=== PATIENT | male | born 1940 | race Caucasian/White ===

== ENCOUNTER 2017-01-14 11:20 | Inpatient (IN) | payer MEDICARE ==
[2017-01-14] MEDS ORDERED: MORPHINE SULFATE 4 MG/ML SYRINGE IV STA (12:09)
[2017-01-14] MEDS ORDERED: SODIUM CHLORIDE 0.9% 1,000 ML IV STA ×2 (12:09)
--- NOTE | 2017-01-14 12:11 | ED ---
General Adult HPI - General Chief complaint: Abdominal Pain Stated complaint: Abd.pain Time Seen by Provider: 01/14/17 11:59 Source: patient, RN notes reviewed, old records reviewed Mode of arrival: wheelchair Limitations: no limitations - History of Present Illness Initial comments: This is a 76-year-old male here for bowel pain. Patient has history of intestinal rupture. Patient concern for intestinal test rupture. Patient has diabetes hypertension. Patient has no chest pain or shortness of breath. No nausea vomiting or diarrhea. No recent fevers or travel history no family members with same similar symptoms. - Related Data Home Medications Medication Instructions Recorded Confirmed Enalapril [Vasotec] 10 mg PO BID 04/11/15 01/14/17 Levothyroxine Sodium [Synthroid] 100 mcg PO DAILY 04/11/15 01/14/17 Potassium Chloride [Klor-Con 20] 20 meq PO BID 04/11/15 01/14/17 Insulin NPH Human Isophane 40 units SQ HS 11/07/15 01/14/17 [NovoLIN N] Atorvastatin [Lipitor] 80 mg PO HS 01/14/17 01/14/17 Docusate Sodium [Dok] 100 mg PO DAILY PRN 01/14/17 01/14/17 Furosemide [Lasix] 40 mg PO BID 01/14/17 01/14/17 Magnesium Oxide [Mag-Ox] 400 mg PO HS 01/14/17 01/14/17 Metoprolol Tartrate [Lopressor] 25 mg PO BID 01/14/17 01/14/17 Multivitamin [Men's Multi-Vitamin] 1 tab PO DAILY@1200 01/14/17 01/14/17 Nitroglycerin Sl Tabs [Nitrostat] 0.4 mg SUBLINGUAL Q5M PRN 01/14/17 01/14/17 Warfarin Sodium [Coumadin] 3 mg PO HS 01/14/17 01/14/17 Warfarin Sodium [Coumadin] 5 mg PO HS 01/14/17 01/14/17 amLODIPine BESYLATE [Norvasc] 10 mg PO DAILY 01/14/17 01/14/17 metFORMIN HCL 1,000 mg PO BID 01/14/17 01/14/17 Allergies Allergy/AdvReac Type Severity Reaction Status Date / Time No Known Allergies Allergy Verified 01/14/17 13:00 Review of Systems ROS Statement: Those systems with pertinent positive or pertinent negative responses have been documented in the HPI. ROS Other: All systems not noted in ROS Statement are negative. Past Medical History Past Medical History: Diabetes Mellitus, Hypertension, Osteoarthritis (OA), Thyroid Disorder Additional Past Medical History / Comment(s): SOB w/activity, balance problem, unsure what problems w/heart History of Any Multi-Drug Resistant Organisms: None Reported Past Surgical History: Appendectomy, Back Surgery, Coronary Bypass/CABG Additional Past Surgical History / Comment(s): valve replacement-not sure which one, some kind of lung surgery in 2003 Past Anesthesia/Blood Transfusion Reactions: No Reported Reaction Past Psychological History: No Psychological Hx Reported Smoking Status: Former smoker Past Alcohol Use History: Rare Past Drug Use History: None Reported - Past Family History Father Family Medical History: Cancer General Exam Limitations: no limitations General appearance: alert, in no apparent distress Head exam: Present: atraumatic, normocephalic, normal inspection Eye exam: Present: normal appearance, PERRL, EOMI. Absent: scleral icterus, conjunctival injection, periorbital swelling ENT exam: Present: normal exam, mucous membranes moist Neck exam: Present: normal inspection. Absent: tenderness, meningismus, lymphadenopathy Respiratory exam: Present: normal lung sounds bilaterally. Absent: respiratory distress, wheezes, rales, rhonchi, stridor Cardiovascular Exam: Present: regular rate, normal rhythm, normal heart sounds. Absent: systolic murmur, diastolic murmur, rubs, gallop, clicks GI/Abdominal exam: Present: soft, normal bowel sounds, hernia (Right inguinal swelling and pain), other. Absent: distended, tenderness, guarding, rebound, rigid Extremities exam: Present: normal inspection, full ROM, normal capillary refill. Absent: tenderness, pedal edema, joint swelling, calf tenderness Back exam: Present: normal inspection Neurological exam: Present: alert, oriented X3, CN II-XII intact Psychiatric exam: Present: normal affect, normal mood Skin exam: Present: warm, dry, intact, normal color. Absent: rash Course Vital Signs 01/14/17 11:27 Temperature 97.1 F L Pulse Rate 60 Respiratory 20 Rate Blood Pressure 141/69 O2 Sat by Pulse 97 Oximetry - Reevaluation(s) Reevaluation #1: 01/14/17 15:02 At this point patient's pain is improved Medical Decision Making - Medical Decision Making 76 male to the ER with recurrent hernia. Patient presented with about pain right inguinal hernia and mild dehydration. Patient be refractory resuscitation symptom control and surgical evaluation. - Lab Data Result diagrams: 01/14/17 12:35 01/14/17 12:35 Lab Results 01/14/17 01/14/17 01/14/17 Range/Units 12:35 12:35 12:35 WBC 8.7 (3.8-10.6) k/uL RBC 3.95 L (4.30-5.90) m/uL Hgb 11.8 L (13.0-17.5) gm/dL Hct 35.1 L (39.0-53.0) % MCV 88.9 (80.0-100.0) fL MCH 29.8 (25.0-35.0) pg MCHC 33.6 (31.0-37.0) g/dL RDW 15.1 (11.5-15.5) % Plt Count 241 (150-450) k/uL Neutrophils % 70 % Lymphocytes % 21 % Monocytes % 6 % Eosinophils % 1 % Basophils % 1 % Neutrophils # 6.0 (1.3-7.7) k/uL Lymphocytes # 1.8 (1.0-4.8) k/uL Monocytes # 0.5 (0-1.0) k/uL Eosinophils # 0.1 (0-0.7) k/uL Basophils # 0.1 (0-0.2) k/uL Sodium 144 (137-145) mmol/L Potassium 5.0 (3.5-5.1) mmol/L Chloride 104 (98-107) mmol/L Carbon Dioxide 25 (22-30) mmol/L Anion Gap 15 mmol/L BUN 26 H (9-20) mg/dL Creatinine 1.06 (0.66-1.25) mg/dL Est GFR (MDRD) Af Amer >60 (>60 ml/min/1.73 sqM) Est GFR (MDRD) Non-Af >60 (>60 ml/min/1.73 sqM) Glucose 125 H (74-99) mg/dL Plasma Lactic Acid Manjeet (0.7-2.0) mmol/L Calcium 9.4 (8.4-10.2) mg/dL Total Bilirubin 1.0 (0.2-1.3) mg/dL AST 40 (17-59) U/L ALT 30 (21-72) U/L Alkaline Phosphatase 52 (38-126) U/L Total Creatine Kinase 304 H (55-170) U/L CK-MB (CK-2) 6.1 H* (0.0-2.4) ng/mL CK-MB (CK-2) Rel Index 2.0 Troponin I <0.012 (0.000-0.034) ng/mL Total Protein 7.7 (6.3-8.2) g/dL Albumin 4.4 (3.5-5.0) g/dL Amylase 37 (30-110) U/L Lipase 62 (23-300) U/L Urine Color Urine Appearance (Clear) Urine pH (5.0-8.0) Ur Specific [place] (1.001-1.035) Urine Protein (Negative) Urine Glucose (UA) (Negative) Urine Ketones (Negative) Urine Blood (Negative) Urine Nitrate (Negative) Urine Bilirubin (Negative) Urine Urobilinogen (<2.0) mg/dL Ur Leukocyte Esterase (Negative) 01/14/17 01/14/17 Range/Units 12:35 12:45 WBC (3.8-10.6) k/uL RBC (4.30-5.90) m/uL Hgb (13.0-17.5) gm/dL Hct (39.0-53.0) % MCV (80.0-100.0) fL MCH (25.0-35.0) pg MCHC (31.0-37.0) g/dL RDW (11.5-15.5) % Plt Count (150-450) k/uL Neutrophils % % Lymphocytes % % Monocytes % % Eosinophils % % Basophils % % Neutrophils # (1.3-7.7) k/uL Lymphocytes # (1.0-4.8) k/uL Monocytes # (0-1.0) k/uL Eosinophils # (0-0.7) k/uL Basophils # (0-0.2) k/uL Sodium (137-145) mmol/L Potassium (3.5-5.1) mmol/L Chloride (98-107) mmol/L Carbon Dioxide (22-30) mmol/L Anion Gap mmol/L BUN (9-20) mg/dL Creatinine (0.66-1.25) mg/dL Est GFR (MDRD) Af Amer (>60 ml/min/1.73 sqM) Est GFR (MDRD) Non-Af (>60 ml/min/1.73 sqM) Glucose (74-99) mg/dL Plasma Lactic Acid Manjeet 2.1 H (0.7-2.0) mmol/L Calcium (8.4-10.2) mg/dL Total Bilirubin (0.2-1.3) mg/dL AST (17-59) U/L ALT (21-72) U/L Alkaline Phosphatase (38-126) U/L Total Creatine Kinase (55-170) U/L CK-MB (CK-2) (0.0-2.4) ng/mL CK-MB (CK-2) Rel Index Troponin I (0.000-0.034) ng/mL Total Protein (6.3-8.2) g/dL Albumin (3.5-5.0) g/dL Amylase (30-110) U/L Lipase (23-300) U/L Urine Color Light Yellow Urine Appearance Clear (Clear) Urine pH 5.0 (5.0-8.0) Ur Specific [place] 1.006 (1.001-1.035) Urine Protein Negative (Negative) Urine Glucose (UA) Negative (Negative) Urine Ketones Negative (Negative) Urine Blood Negative (Negative) Urine Nitrate Negative (Negative) Urine Bilirubin Negative (Negative) Urine Urobilinogen <2.0 (<2.0) mg/dL Ur Leukocyte Esterase Negative (Negative) - Radiology Data Radiology results: report reviewed (CT pelvis shows right hernia as well as left inguinal hernia larger on the right), image reviewed Disposition Clinical Impression: Abdominal pain, Right inguinal hernia Disposition: ADMITTED IP TO THIS [facility] Condition: Good Referrals: Elian Torres MD [Primary Care Provider] - 1-2 days
[2017-01-14] MEDS ORDERED: RX INFO: IV CONTRAST WAS GIVEN 1 EACH MISC MISCELLANE PRN (12:43)
[2017-01-14 12:52] LABS: Basophils # (A) 0.1 k/uL (0-0.2); Basophils % (A) 1 %; CH 29.5; CHCM 33.4; Eosinophils # (A) 0.1 k/uL (0-0.7); Eosinophils % (A) 1 %; HCT 35.1 % (39.0-53.0); HDW 2.78; HGB 11.8 gm/dL (13.0-17.5); Luc # (Auto) 0.18; Luc % (Auto) 2; Lymphocytes # (A) 1.8 k/uL (1.0-4.8); Lymphocytes % (A) 21 %; MCH 29.8 pg (25.0-35.0); MCHC 33.6 g/dL (31.0-37.0); MCV 88.9 fL (80.0-100.0); Mean Platelet Volume 8.5; Monocytes # (A) 0.5 k/uL (0-1.0); Monocytes % (A) 6 %; Neutrophils % (A) 70 %; RBC 3.95 m/uL (4.30-5.90); RDW 15.1 % (11.5-15.5); WBC 8.7 k/uL (3.8-10.6); WBC (Perox) 8.69
[2017-01-14 13:11] LABS: Amylase 37 U/L (30-110); Anion Gap 15 mmol/L; Calcium 9.4 mg/dL (8.4-10.2); Carbon Dioxide 25 mmol/L (22-30); Chloride 104 mmol/L (98-107); Creatine Kinase 304 U/L (55-170); Glucose 125 mg/dL (74-99); Non-African American GFR(MDRD) >60 (>60 ml/min/1.73 sqM); Sodium 144 mmol/L (137-145); Total Protein 7.7 g/dL (6.3-8.2)
[2017-01-14 13:17] LABS: AST 40 U/L (17-59); Blood Urea Nitrogen 26 mg/dL (9-20)
[2017-01-14 13:18] LABS: ALT 30 U/L (21-72); Alkaline Phosphatase 52 U/L (38-126)
[2017-01-14 13:23] LABS: Troponin I <0.012 ng/mL (0.000-0.034)
[2017-01-14 13:24] LABS: Creatine Kinase MB 6.1 ng/mL (0.0-2.4)
[2017-01-14 13:49] LABS: Appearance,Urine Clear (Clear); Bilirubin,Urine Negative (Negative); Glucose,Urine (UA) Negative (Negative); Ketones,Urine Negative (Negative); Leukocyte Esterase,Urine Negative (Negative); Nitrite,Urine Negative (Negative); Protein,Urine Negative (Negative); Specific Gravity,Urine 1.006 (1.001-1.035); UA Billing (MACRO vs. MICRO) CHEM; Urobilinogen,Urine <2.0 mg/dL (<2.0)
--- NOTE | 2017-01-14 14:36 | CT ---
EXAMINATION TYPE: CT abdomen pelvis w con DATE OF EXAM: 01/14/2017 2:21 PM COMPARISON: NONE HISTORY: 76-year-old male with right groin pain x3 weeks. TECHNIQUE: Contiguous axial scanning of the abdomen and pelvis following administration of 100 ml Omn ipaque 300 IV contrast. Delayed images through the kidneys and coronal/sagittal reconstructions perf ormed. CT DLP: 1813 mGycm Automated exposure control for dose reduction was used. FINDINGS: Heart is upper limits of normal in size without pericardial effusion. A right ventricular pacer lead is seen. Mitral annular calcifications are present. There is chronic appearing pleural parenchymal th ickening along the peripheral left base and underlying interstitial densities likely scarring. Small hiatal hernia. Liver is mildly enlarged measuring 18.3 cm craniocaudal. There may be some underlying fatty infiltrat ion. The phase of contrast limits the evaluation. No biliary ductal dilatation. Gallbladder, adrenal glands, kidneys, spleen, and pancreas appear within normal limits. Moderate atherosclerotic calcifications throughout the abdominal aorta and iliac arteries without ane urysm. No dilated small bowel, free fluid, or free air. No mesenteric or retroperitoneal lymphadenopathy. There is some surgical material along the anterior abdominal wall of the right lower quadrant. Redundant sigmoid colon noted. No pericolonic inflammatory change. Bladder is urine distended. Prostate gland is enlarged measuring 5.3 cm wide. Rectum appears normal. No abnormal fluid collection in the pelvis or pelvic lymphadenopathy seen. There is a large right-sided indirect inguinal hernia containing mesenteric fat and vessels. Small he rnia on the left. Bones: Post surgical changes of right hip total arthroplasty. Laminectomy changes and posterior fusio n changes in the lumbar spine with multilevel degenerative changes. No osseous destructive process se en. IMPRESSION: 1. LARGE INDIRECT RIGHT-SIDED INGUINAL HERNIA CONTAINING MESENTERIC FAT AND VESSELS. SMALL INGUINAL H ERNIA ON THE LEFT. 2. SUSPECT CHRONIC PLEURAL-PARENCHYMAL SCARRING AT THE LEFT BASE. 3. HEPATOMEGALY AT 18.3 CM. THERE MAY BE UNDERLYING FATTY INFILTRATION. CORRELATE WITH LFT's, LIPID P ROFILE, AND PATIENT RISK FACTORS. 4. SMALL HIATAL HERNIA AND PROSTATOMEGALY (5.3 CM WIDE).
[2017-01-14] MEDS ORDERED: SODIUM CHLORIDE 0.9% 1,000 ML IV ONE (14:59)
[2017-01-14] MEDS ORDERED: MORPHINE SULFATE 4 MG/ML SYRINGE IVP PRN (15:00)
[2017-01-14] MEDS ORDERED: ONDANSETRON 4 MG/2 ML VIAL IVP STA (15:00)
[2017-01-14] MEDS ORDERED: ONDANSETRON 4 MG/2 ML VIAL IVP PRN (15:00)
[2017-01-14] MEDS ORDERED: PANTOPRAZOLE 40 MG/10 ML VIAL IVP STA (15:00)
--- NOTE | 2017-01-14 17:34 | P.GSHP ---
History of Present Illness H&P Date: 01/14/17 Chief Complaint: Right groin pain Patient is a 76-year-old male, patient of Dr. Torres in the outpatient setting, with complex medical history significant for atrial flutter on anticoagulation in the form of Coumadin with last dose taken last night. Patient presented to the hospital with complaints of right groin pain and swelling increasing in severity over the last 3 weeks. No history of chills, nausea, vomiting, increased shortness of breath, chest pain, or abdominal pain. Patient states he has occasional diarrhea. No history of constipation. No history of melena or hematochezia. CT of abdomen and pelvis with evidence of large indirect right-sided inguinal hernia containing mesenteric fat and vessels and small inguinal hernia on the left. Patient afebrile. No evidence of leukocytosis. Past Medical History Past Medical History: Atrial Flutter, Asthma, Coronary Artery Disease (CAD), Diabetes Mellitus, Hyperlipidemia, Hypertension, Osteoarthritis (OA), Pneumonia , Sleep Apnea/CPAP/BIPAP, Thyroid Disorder Additional Past Medical History / Comment(s): "FREQUENT NOSE BLEEDS", PAST AFLUTTER, ASTHMA CHILD, NO CPAP MACHINE USED, PAST EAR INFECTIONS, WEARS DEPENDS-URINARY INCONT. BALANCE ISSUES AT TIMES USES A WALKER. History of Any Multi-Drug Resistant Organisms: None Reported Past Surgical History: Appendectomy, Back Surgery, Coronary Bypass/CABG, Heart Catheterization With Stent, Joint Replacement, Pacemaker, Tonsillectomy Additional Past Surgical History / Comment(s): AORTIC VALVE REPLACMENT PT STATED "ALSO HAD 2 VESSELS DONE", some kind of lung surgery in 2003, KELSEA, CARDIOVERSION. PNEUMOTHORAX HAD SOME TYPE OF SX AND A C/T.RT HIP REPLACMENT. Past Anesthesia/Blood Transfusion Reactions: No Reported Reaction Additional Past Anesthesia/Blood Transfusion Reaction / Comment(s): RECEIVED BLOOD IN PAST -NO REACTION TO IT. Date of Last Stent Placement:: UNK Type of Cardiac Device: Permanent Pacemaker Device Placement Date:: UNK Past Psychological History: No Psychological Hx Reported Additional Psychological History / Comment(s): PT LIVES WITH BROTHER AND HIS SISTER IN LAW. PT DRIVES, STATES OCC HAS BALANCE ISSUES AND HAS A WALKER IF NEEDED. HAS 3 STEPS UP INTO HOUSE. NO OUTSIDE SERVICES RECIEVED AT PRESENT TIME. STATED HAS 02 MACHINE AT HOME SINCE LUNG SX BUT DOES'NT USE IT. Smoking Status: Former smoker Past Alcohol Use History: Rare Additional Past Alcohol Use History / Comment(s): QUIT SMOKING 1979 Past Drug Use History: None Reported - Past Family History Mother Family Medical History: CVA/TIA Father Family Medical History: Cancer Medications and Allergies Home Medications Medication Instructions Recorded Confirmed Type Enalapril [Vasotec] 10 mg PO BID 04/11/15 01/14/17 History Levothyroxine Sodium [Synthroid] 100 mcg PO DAILY 04/11/15 01/14/17 History Potassium Chloride [Klor-Con 20] 20 meq PO BID 04/11/15 01/14/17 History Insulin NPH Human Isophane 40 units SQ HS 11/07/15 01/14/17 History [NovoLIN N] Atorvastatin [Lipitor] 80 mg PO HS 01/14/17 01/14/17 History Docusate Sodium [Dok] 100 mg PO DAILY PRN 01/14/17 01/14/17 History Furosemide [Lasix] 40 mg PO BID 01/14/17 01/14/17 History Magnesium Oxide [Mag-Ox] 400 mg PO HS 01/14/17 01/14/17 History Metoprolol Tartrate [Lopressor] 25 mg PO BID 01/14/17 01/14/17 History Multivitamin [Men's Multi-Vitamin] 1 tab PO DAILY@1200 01/14/17 01/14/17 History Nitroglycerin Sl Tabs [Nitrostat] 0.4 mg SUBLINGUAL Q5M PRN 01/14/17 01/14/17 History Warfarin Sodium [Coumadin] 3 mg PO HS 01/14/17 01/14/17 History Warfarin Sodium [Coumadin] 5 mg PO HS 01/14/17 01/14/17 History amLODIPine BESYLATE [Norvasc] 10 mg PO DAILY 01/14/17 01/14/17 History metFORMIN HCL 1,000 mg PO BID 01/14/17 01/14/17 History Allergies Allergy/AdvReac Type Severity Reaction Status Date / Time No Known Allergies Allergy Verified 01/14/17 13:00 Surgical - Exam Vital Signs Temp Pulse Resp BP Pulse Ox 97.1 F L 60 20 141/69 97 01/14/17 11:27 01/14/17 11:27 01/14/17 11:27 01/14/17 11:27 01/14/17 11:27 GENERAL: Pt awake and alert, well-appearing, well-nourished, and in no acute distress. HEAD: Atraumatic, normocephalic. EYES: Pupils equal and round. Sclera anicteric, conjunctiva are normal. ENT: Moist mucous membranes. LUNGS: Breath sounds diminished to auscultation bilaterally. No wheezes, rales , or rhonchi. HEART: Heart S1, S2, no S3 or S4. Regular rate and rhythm. No murmurs, rubs or gallops. ABDOMEN: Soft, obese, nontender, nondistended, normoactive bowel sounds. No guarding, no rebound. No masses or organomegaly appreciated. Right inguinal hernia swelling and pain. EXTREMITIES: Palpable peripheral pulses. 1+ edema to bilateral lower extremities. No calf tenderness. NEUROLOGICAL: Pt oriented x 3. No focal deficits. Strength and sensation grossly intact. PSYCH: Normal mood, normal affect. Results - Labs 01/14/17 12:35 01/14/17 12:35 - Imaging CT scan - abdomen: report reviewed CT scan - pelvis: report reviewed Assessment and Plan Plan: Impression: 1. Large indirect right-sided inguinal hernia containing mesenteric fat and vessels. 2. Small inguinal hernia on the left. 3. Small hiatal hernia. 4. Dehydration. Plan: Patient will undergo bilateral inguinal hernia repair when medically stable. Will ask pulmonary and cardiology service to evaluate patient for preop clearance. Will place patient on a clear liquid diet. Nothing by mouth after midnight. Continue IV hydration. Continue supportive treatment and pain management. Repeat CBC, BMP, lactic acid, PT/INR in a.m. Hold Coumadin. The above impression and plan have been discussed and directed by Dr. Guerra. Enma RUBI acting as scribe for Dr. Guerra.
[2017-01-14] MEDS ORDERED: DOCUSATE 100 MG CAP PO PRN (18:17)
[2017-01-14] MEDS ORDERED: NITROGLYCERIN SL TABS 0.4 MG TAB SUBLINGUAL PRN (18:17)
[2017-01-14 20:34] LABS: Hemoglobin A1C 10.1 % (4.2-6.1)
[2017-01-14] MEDS: FUROSEMIDE 40 MG TAB PO SCH (20:57)
[2017-01-14] MEDS: ATORVASTATIN 80 MG TAB PO SCH (20:57)
[2017-01-14] MEDS: METOPROLOL TARTRATE 25 MG TAB PO SCH (20:58)
[2017-01-14] MEDS: MAGNESIUM OXIDE 400 MG TAB PO SCH (20:58)
[2017-01-14] MEDS: POTASSIUM CHLORIDE ER 20 MEQ TAB.ER PO SCH (20:58)
[2017-01-14] MEDS: LISINOPRIL 20 MG TAB PO SCH (20:58)
[2017-01-14 21:32] LABS: Glucose,Whole Blood 121 mg/dL (75-99)
[2017-01-14] MEDS: INSULIN LISPRO (humaLOG) 300 UNIT/3 ML VIAL SQ SCH (23:31)
[2017-01-15] MEDS: LEVOTHYROXINE 100 MCG TAB PO SCH (06:14)
[2017-01-15 07:10] LABS: Glucose,Whole Blood 121 mg/dL (75-99)
[2017-01-15] MEDS: INSULIN LISPRO (humaLOG) 300 UNIT/3 ML VIAL SQ SCH ×4 (08:12→22:26)
[2017-01-15] MEDS: FUROSEMIDE 40 MG TAB PO SCH (08:16)
[2017-01-15] MEDS: METOPROLOL TARTRATE 25 MG TAB PO SCH ×2 (08:16→21:24)
[2017-01-15] MEDS: LISINOPRIL 20 MG TAB PO SCH (08:16)
[2017-01-15] MEDS: POTASSIUM CHLORIDE ER 20 MEQ TAB.ER PO SCH (08:16)
[2017-01-15] MEDS: PANTOPRAZOLE 40 MG/10 ML VIAL IVP SCH (08:22)
[2017-01-15 08:54] LABS: Basophils # (A) 0.1 k/uL (0-0.2); Basophils % (A) 1 %; CH 28.5; CHCM 31.4; Eosinophils # (A) 0.2 k/uL (0-0.7); Eosinophils % (A) 2 %; HCT 32.2 % (39.0-53.0); HDW 2.68; Hypochromasia Slight; Luc # (Auto) 0.14; Luc % (Auto) 2; Lymphocytes # (A) 1.6 k/uL (1.0-4.8); Lymphocytes % (A) 23 %; MCH 31.3 pg (25.0-35.0); MCHC 34.3 g/dL (31.0-37.0); MCV 91.3 fL (80.0-100.0); Mean Platelet Volume 7.9; Monocytes # (A) 0.4 k/uL (0-1.0); Monocytes % (A) 6 %; Neutrophils # (A) 4.8 k/uL (1.3-7.7); Neutrophils % (A) 66 %; RBC 3.53 m/uL (4.30-5.90); WBC 7.2 k/uL (3.8-10.6)
[2017-01-15 08:55] LABS: Anion Gap 12 mmol/L; Blood Urea Nitrogen 20 mg/dL (9-20); Calcium 8.7 mg/dL (8.4-10.2); Carbon Dioxide 24 mmol/L (22-30); Chloride 107 mmol/L (98-107); Glucose 111 mg/dL (74-99); Non-African American GFR(MDRD) >60 (>60 ml/min/1.73 sqM); Potassium 4.5 mmol/L (3.5-5.1); Sodium 143 mmol/L (137-145)
[2017-01-15] MEDS ORDERED: ENOXAPARIN 40 MG/0.4 ML SYRINGE SQ SCH (09:00)
[2017-01-15 09:20] LABS: INR 1.4 (<1.1); Prothrombin Time 13.7 sec (9.0-12.0)
--- NOTE | 2017-01-15 11:16 | P.CNPUL ---
History of Present Illness Consult date: 01/15/17 Requesting physician: Gavin Guerra Reason for consult: other (Preop clearance) Chief complaint: Right groin pain History of present illness: This is a very pleasant 76-year-old gentleman who follows with Dr. Brand as his primary care physician. He has a history of coronary artery disease status post coronary artery bypass grafting, aortic valve replacement with a bioprosthetic valve, atrial flutter with previous ablation maintained on warfarin, hypertension, diabetes mellitus, hypothyroidism, hyperlipidemia. He also has a history of a collapsed left lung back in 2003 at which time he had an open lung procedure and chest tubes. Denies any cancer diagnosis. He was in [facility] for 52 days. He states he quit smoking in 1979. He also has a history of obstructive sleep apnea but had declined any CPAP machine. He states he has oxygen at home but has not used it for several years. He also states he has her rescue inhaler that he uses once or twice a week. He has not been seen by a payroll processor in several years. He had seen Dr. Miller in the past. He presented here yesterday with right groin pain. A computed tomography scan of the pelvis revealed evidence of a bilateral inguinal hernias right greater than left and he is scheduled for right inguinal hernia repair today. We are asked in consultation for preoperative clearance. Currently, he denies any shortness of breath, cough or congestion. No wheezing. He states he is fairly active and able to do his day-to-day activities without significant dyspnea. He is maintaining good O2 saturations in the mid 90s on room air. The lung bases on the abdominal CT are clear. Afebrile. No leukocytosis. Review of Systems 14 point review of system was conducted. All negative other than as mentioned in HPI. Mainly that of right groin pain. Past Medical History Past Medical History: Atrial Flutter, Asthma, Coronary Artery Disease (CAD), Diabetes Mellitus, Hyperlipidemia, Hypertension, Osteoarthritis (OA), Pneumonia , Sleep Apnea/CPAP/BIPAP, Thyroid Disorder Additional Past Medical History / Comment(s): "FREQUENT NOSE BLEEDS", PAST AFLUTTER, ASTHMA CHILD, NO CPAP MACHINE USED, PAST EAR INFECTIONS, WEARS DEPENDS-URINARY INCONT. BALANCE ISSUES AT TIMES USES A WALKER. History of Any Multi-Drug Resistant Organisms: None Reported Past Surgical History: Appendectomy, Back Surgery, Coronary Bypass/CABG, Heart Catheterization With Stent, Joint Replacement, Pacemaker, Tonsillectomy Additional Past Surgical History / Comment(s): AORTIC VALVE REPLACMENT PT STATED "ALSO HAD 2 VESSELS DONE", some kind of lung surgery in 2003, KELSEA, CARDIOVERSION. PNEUMOTHORAX HAD SOME TYPE OF SX AND A C/T.RT HIP REPLACMENT. Past Anesthesia/Blood Transfusion Reactions: No Reported Reaction Additional Past Anesthesia/Blood Transfusion Reaction / Comment(s): RECEIVED BLOOD IN PAST -NO REACTION TO IT. Date of Last Stent Placement:: UNK Type of Cardiac Device: Permanent Pacemaker Device Placement Date:: UNK Past Psychological History: No Psychological Hx Reported Additional Psychological History / Comment(s): PT LIVES WITH BROTHER AND HIS SISTER IN LAW. PT DRIVES, STATES OCC HAS BALANCE ISSUES AND HAS A WALKER IF NEEDED. HAS 3 STEPS UP INTO HOUSE. NO OUTSIDE SERVICES RECIEVED AT PRESENT TIME. STATED HAS 02 MACHINE AT HOME SINCE LUNG SX BUT DOES'NT USE IT. Smoking Status: Former smoker Past Alcohol Use History: Rare Additional Past Alcohol Use History / Comment(s): QUIT SMOKING 1979 Past Drug Use History: None Reported - Past Family History Mother Family Medical History: CVA/TIA Father Family Medical History: Cancer Medications and Allergies Home Medications Medication Instructions Recorded Confirmed Type Enalapril [Vasotec] 10 mg PO BID 04/11/15 01/14/17 History Levothyroxine Sodium [Synthroid] 100 mcg PO DAILY 04/11/15 01/14/17 History Potassium Chloride [Klor-Con 20] 20 meq PO BID 04/11/15 01/14/17 History Insulin NPH Human Isophane 40 units SQ HS 11/07/15 01/14/17 History [NovoLIN N] Atorvastatin [Lipitor] 80 mg PO HS 01/14/17 01/14/17 History Docusate Sodium [Dok] 100 mg PO DAILY PRN 01/14/17 01/14/17 History Furosemide [Lasix] 40 mg PO BID 01/14/17 01/14/17 History Magnesium Oxide [Mag-Ox] 400 mg PO HS 01/14/17 01/14/17 History Metoprolol Tartrate [Lopressor] 25 mg PO BID 01/14/17 01/14/17 History Multivitamin [Men's Multi-Vitamin] 1 tab PO DAILY@1200 01/14/17 01/14/17 History Nitroglycerin Sl Tabs [Nitrostat] 0.4 mg SUBLINGUAL Q5M PRN 01/14/17 01/14/17 History Warfarin Sodium [Coumadin] 3 mg PO HS 01/14/17 01/14/17 History Warfarin Sodium [Coumadin] 5 mg PO HS 01/14/17 01/14/17 History amLODIPine BESYLATE [Norvasc] 10 mg PO DAILY 01/14/17 01/14/17 History metFORMIN HCL 1,000 mg PO BID 01/14/17 01/14/17 History Allergies Allergy/AdvReac Type Severity Reaction Status Date / Time No Known Allergies Allergy Verified 01/14/17 13:00 Physical Exam Vitals: Vital Signs Temp Pulse Pulse Resp BP BP Pulse Ox 01/15/17 07:00 97.3 F L 63 16 119/64 92 L 01/14/17 23:00 97.8 F 59 L 18 134/76 95 01/14/17 16:17 96.7 F L 60 20 136/73 92 L 01/14/17 16:00 60 20 01/14/17 15:06 97.9 F 60 18 145/65 96 Intake and Output 01/14/17 01/15/17 01/15/17 22:59 06:59 14:59 Output Total 700 325 Balance -700 -325 Output: Urine 700 325 Other: Voiding Method Urinal # Voids 1 GENERAL EXAM: Morbidly obese. Alert, fairly comfortable in no apparent distress. HEAD: Normocephalic. EYES: Normal reaction of pupils, equal size. NOSE: Clear with pink turbinates. THROAT: There is crowding the posterior pharynx. No erythema or exudates. NECK: Short. No masses, no JVD. CHEST: No chest wall deformity. LUNGS: Equal air entry with no crackles, wheeze, rhonchi or dullness. CVS: S1 and S2 normal with no audible murmurs, regular rhythm. ABDOMEN: No hepatosplenomegaly, normal bowel sounds, no guarding or rigidity. SPINE: No scoliosis or deformity SKIN: No rashes CENTRAL NERVOUS SYSTEM: No focal deficits, tone is normal in all 4 extremities. Extremities: Bilateral inguinal hernias noted more so on the right. Trace peripheral edema. No clubbing, no cyanosis. Results - Laboratory Findings CBC and BMP: 01/15/17 08:14 01/15/17 08:14 PT/INR, D-dimer PT 13.7 sec (9.0-12.0) H 01/15/17 08:14 INR 1.4 (<1.1) 01/15/17 08:14 Abnormal lab findings: Abnormal Labs 01/14/17 01/15/17 01/15/17 21:28 07:06 08:14 RBC 3.53 L Hgb 11.0 L Hct 32.2 L PT Glucose POC Glucose (mg/dL) 121 H 121 H 01/15/17 01/15/17 08:14 08:14 RBC Hgb Hct PT 13.7 H Glucose 111 H POC Glucose (mg/dL) Assessment and Plan Plan: Impression: #1 Right groin pain secondary to right inguinal hernia. Left inguinal hernia as well, smaller than right. #2 Remote history of chronic tobacco dependence suspect mild component of chronic obstructive pulmonary disease and utilizes albuterol as needed infrequently. #3 Obstructive sleep apnea, declined CPAP machine. #4 History of left lung collapse requiring chest tubes and surgical intervention back in 2003. Denies history of cancer. #5 Coronary artery disease status post coronary artery bypass grafting. #6 Aortic stenosis status post aortic valve replacement. #7 Atrial flutter status post ablation and permanent pacemaker implantation. Maintained on warfarin. #8 Hypertension. #9 Hyperlipidemia. #10 Diabetes mellitus, type II. #11 Hypothyroidism. #12 Obesity. Plan: The patient was seen and evaluated by Dr. Rudd. We will obtain a chest x- ray. We'll initiate bronchodilators. We'll educate the patient on the incentive spirometer. We'll obtain a bedside spirometry and make further recommendations based on the findings. Barring any significant abnormalities the patient is cleared for surgery from the pulmonary standpoint. We will continue to follow and make further recommendations based on his clinical status.
[2017-01-15] MEDS ORDERED: ALBUTEROL NEB (CONC) 2.5 MG/0.5 ML INHALATION PRN (11:18)
--- NOTE | 2017-01-15 12:05 | CONS ---
DATE OF CONSULTATION: REASON FOR CONSULTATION: Preoperative clearance. Patient is a very pleasant 76-year-old gentleman, morbidly obese with sleep apnea history and atrial fibrillation history and patient's functional status is around 4 METs and patient is on anticoagulation with Coumadin, which is being held at this point of time and the patient's INR is 1.4 and along with me, Cardiology and Pulmonology were consulted as well for clearance. Patient is complaining of some cough. Patient does not have any history of coronary artery disease, does not have history of congestive heart failure. I reviewed his previous echocardiogram which showed normal ejection fraction and because of morbid obesity, sleep apnea, patient is intermediate risk for surgery and same thing was discussed with the patient and patient probably can go for surgery if he is willing to take this risk, which he is and patient denied any smoking history. Patient is on lisinopril and Lasix, both of which I am holding because of his borderline kidney function and concern regarding perioperative hypertension related to stroke. Patient is also on metoprolol, which will be continued. REVIEW OF SYSTEMS: CONSTITUTIONAL: No fever, no malaise, no fatigue. HEENT: No recent visual problems or hearing problems. Denied any sore throat. CARDIOVASCULAR: No chest pain, orthopnea, PND, no palpitations, no syncope. PULMONARY: No shortness of breath, no cough, no hemoptysis. GASTROINTESTINAL: No diarrhea, no nausea, no vomiting, no abdominal pain. Normoactive bowel sounds. NEUROLOGICAL: No headaches, no weakness, no numbness. HEMATOLOGICAL: Denies any bleeding or petechiae. GENITOURINARY: Denies any burning micturition, frequency, or urgency. MUSCULOSKELETAL/RHEUMATOLOGICAL: Denies any joint pain, swelling, or any muscle pain. ENDOCRINE: Denies any polyuria or polydipsia. The rest of the 14 point review of systems is negative. PAST MEDICAL HISTORY: Significant for atrial fibrillation, on anticoagulation with Coumadin, coronary artery disease, asthma, diabetes mellitus, hyperlipidemia, hypertension, osteoarthritis, sleep apnea on CPAP machine, hypothyroidism, appendectomy, back surgery, coronary artery bypass grafting, cardiac catheterization with stent placement, joint replacement, pacemaker placement, pacemaker in the past and tonsillectomy. SOCIAL HISTORY: Quit smoking in 1979, denied any alcohol abuse or any drug abuse. FAMILY HISTORY: Mother had CVA/TIA and father had cancer. Home medications include enalapril, levothyroxine, potassium chloride, insulin 40 units subcutaneous at bedtime, that is NPH, metformin. Since I do not know when he will be able to eat, I will give him a half a dose of Lantus and continue with sliding scale insulin. Patient will be started on 20 units of Lantus at this time. Coumadin, amlodipine, metformin. Amlodipine needs to be held as well. PHYSICAL EXAMINATION: Temperature 97.3, pulse of 63, respiratory rate of 16, blood pressure 119/64, saturating at 98% on room. GENERAL: Patient is morbidly obese, alert and oriented x3. HEENT: Pupils are round and equally reacting to light. EOMI. No scleral icterus. No conjunctival pallor. Normocephalic, atraumatic. No pharyngeal erythema. No thyromegaly. CARDIOVASCULAR: S1 and S2 present. No murmurs, rubs, or gallops. PULMONARY: Chest is clear to auscultation, no wheezing or crackles. ABDOMEN: Soft, nontender, nondistended, normoactive bowel sounds. No palpable organomegaly. MUSCULOSKELETAL: No joint swelling or deformity. EXTREMITIES: No cyanosis, clubbing, or pedal edema. NEUROLOGICAL: Gross neurological examination did not reveal any focal deficits. SKIN: No rashes. LABORATORY DATA: Significant ones are already discussed in the HPI itself. Patient's blood sugars are well controlled at this point of time. CT of the abdomen was reviewed. Patient will need an EKG and a chest x-ray but I will leave it up to Pulmonary Service and Cardiology who is going to evaluate the patient. ASSESSMENT AND PLAN: 1. Preoperative clearance. Patient is in intermediate risk of the above-mentioned reasons that is mostly secondary to sleep apnea, restrictive lung disease and same risks were discussed with the patient and patient is willing to go for surgery. 2. Large indirect right-sided inguinal hernia. Management as per Primary Service. 3. Atrial fibrillation, presently rate controlled. Holding off anticoagulation. Continue with metoprolol. 4. Hypertension. Hold off amlodipine and lisinopril because of above-mentioned reasons and I do not see a reason for diuretic therapy at this point of time, which will also be held and patient is on IV fluids at this point of time 100 mL/h which can be continued in my opinion. 5. Diabetes mellitus, considering that patient will be n.p.o. since and after surgery, patient will be started on 20 units of Lantus to maintain the baseline blood sugar. 6. Hypothyroidism. Continue with levothyroxine. 7. Metformin needs to be held. Thank you for letting me participate in the patient's care. Will continue to follow the patient.
[2017-01-15 12:14] LABS: Glucose,Whole Blood 120 mg/dL (75-99)
--- NOTE | 2017-01-15 12:48 | XR ---
EXAMINATION TYPE: XR chest 1V portable DATE OF EXAM: 01/15/2017 11:37 AM Comparison: 04/02/2010 Clinical History: 76-year-old male Pre-op, suspect COPD Findings: Median sternotomy wires are present. Left anterior chest wall pacemaker generator with right atrial a nd right ventricular leads. Heart is upper limits of normal in size. Mild interstitial prominence. No consolidation or significan t pleural effusion seen. Impression: Borderline cardiomegaly. Chronic changes without acute process seen.
[2017-01-15] MEDS ORDERED: IV FLUID CONTINUATION 1,000 ML IV ONE (13:45)
[2017-01-15] MEDS: MULTIVITAMINS, THERA 1 EACH TAB PO SCH (13:50)
[2017-01-15] MEDS: ALBUTEROL NEB (CONC) 2.5 MG/0.5 ML INHALATION SCH ×3 (13:55→19:45)
--- NOTE | 2017-01-15 14:02 | CONS ---
DATE OF CONSULTATION: Mr. Hatch is a 76-year-old gentleman who is seen for preop evaluation. Patient is admitted with a right groin pain and he has a right inguinal hernia. This patient has a history of aortic stenosis with status post aortic valve replacement, coronary artery bypass surgery several years ago, has been doing fairly well. He has a history of atrial flutter and subsequently he had ablation and also has a pacemaker. Patient has a history of hypertension, diabetes, and hyperlipidemia. Patient has been taking Coumadin but his INR was 1.4 on admission. Patient is moderately active physically. He can walk 1 to 2 blocks and denies any orthopnea or PND. There is no history of angina. Past medical history includes a history of aortic valve replacement, coronary artery bypass surgery, history of ablation for atrial flutter, history of diabetes, hyperlipidemia, hypertension, appendectomy, back surgery, pacemaker and tonsillectomy. Patient's home medications included Vasotec, potassium, Synthroid, Lipitor, Lasix, Lopressor, Coumadin, and Nitrostat. Physical examination at present reveals a 76-year-old gentleman who is obesely built and does not appear to be in any acute distress. Patient's blood pressure is 120/64 mmHg, oxygen saturation is 92%. Patient is afebrile. Heart rate is 60 per minute. HEENT examination is negative. Neck is supple. There is no increase in jugular venous pressure. Both the carotid pulses are felt. There is no bruit. Chest is symmetrical. HEART: The PMI is not felt. First and second heart sounds are normal. Prosthetic sounds are well heard. Lungs are clinically clear to auscultation and percussion. Abdomen is soft. Patient has an inguinal hernia. EXTREMITIES: There is no evidence of any significant leg edema. Patient's electrolytes are normal. Chest x-ray is normal. Creatinine is 1.1, troponin is less than 0.02. The INR is 1.4. FINAL IMPRESSION: This patient is stable, status post aortic valve replacement, coronary artery bypass surgery. Patient is not having any symptoms suggestive of unstable angina. There is no evidence of any overt congestive cardiac failure. Patient does also have a history of diabetes. In view of that, the patient is considered at moderately increased risk for surgery but there is no absolute contraindication. I would recommend to try the patient on Eliquis 5 mg b.i.d. after the surgery. In view that his INR is subtherapeutic and he is not taking his Coumadin regularly.
[2017-01-15 14:06] LABS: Glucose,Whole Blood 117 mg/dL (75-99)
[2017-01-15 14:08] VITALS: BMI 31.5
[2017-01-15] MEDS ORDERED: HEPARIN SODIUM,PORCINE 5,000 UNIT/ML 1 ML VIAL SQ ONE (14:11)
[2017-01-15] MEDS ORDERED: MIDAZOLAM 2 MG/2 ML VIAL ONE (14:32)
[2017-01-15] MEDS ORDERED: NEOSTIGMINE 1 MG/ML 10 ML VIAL ONE (14:32)
[2017-01-15] MEDS ORDERED: PROPOFOL 10 MG/ML 20 ML VIAL IV ONE (14:32)
[2017-01-15] MEDS ORDERED: GLYCOPYRROLATE 0.2 MG/ML 2 ML VIAL ONE (14:32)
[2017-01-15] MEDS ORDERED: ePHEDrine 50 MG/ML 1 ML AMP ONE (14:32)
[2017-01-15] MEDS ORDERED: LIDOCAINE 1% INJ 10MG/ML (20 ML MDV) ONE (14:32)
[2017-01-15] MEDS ORDERED: SUCCINYLCHOLINE CHLORIDE 100 MG/5 ML SYR IV ONE (14:32)
[2017-01-15] MEDS ORDERED: fentaNYL (PF) 50 MCG/ML 2 ML AMP ONE (14:32)
[2017-01-15] MEDS ORDERED: ROCURONIUM BROMIDE 10 MG/ML 10 ML VIAL IV ONE (14:32)
[2017-01-15] MEDS ORDERED: ONDANSETRON 4 MG/2 ML VIAL ONE (14:32)
[2017-01-15] MEDS ORDERED: SODIUM CHLORIDE 0.9% 50 ML with ceFAZolin 2,000 MG IV ONE ×2 (14:40)
[2017-01-15] MEDS ORDERED: BUPIVACAIN-EPI 0.25%-1:200,000 30 ML VIAL SQ ONE ×2 (14:57)
[2017-01-15] MEDS ORDERED: LACTATED RINGERS 1,000 ML IV ONE ×2 (16:05→16:12)
[2017-01-15] MEDS ORDERED: HYDROmorphone 1 MG/ML 1 ML SYRINGE IVP PRN (16:12)
[2017-01-15] MEDS ORDERED: HYDROcodone/APAP 5-325MG 1 EACH TAB PO PRN (16:12)
[2017-01-15] MEDS ORDERED: traMADol 50 MG TAB PO PRN (16:12)
[2017-01-15] MEDS ORDERED: NALOXONE 0.4 MG/ML 1 ML VIAL IV PRN (16:12)
--- NOTE | 2017-01-15 16:12 | P.OP ---
Date of Procedure: 01/15/17 Preoperative Diagnosis: Incarcerated right inguinal hernia Left inguinal hernia Postoperative Diagnosis: Massive incarcerated right inguinal hernia Left inguinal hernia Procedure(s) Performed: Repair of right incarcerated inguinal hernia Right orchiectomy Partial greater Omentectomy Repair of left direct inguinal hernia Anesthesia: CAL Surgeon: Gavin Guerra Estimated Blood Loss (ml): 20 Pathology: other (Right testicle, greater omentum, hernia sac,) Condition: stable Disposition: PACU Description of Procedure: The patient's placed on the operating table in the supine position. He received general anesthesia. His abdomen was prepped and draped in the usual sterile fashion. The left internal hernia was repaired first. A standard incision was made in the inguinal area over the internal ring. The subcu tissues were divided using left cautery. The fascia external oblique was exposed. The fascia was opened after reilly in the fascia was made with 11 blade and then using Metzenbaum scissors the fascia was opened. The cord structures were identified there was a hernia sac seen medial to the cord structures. A rubber [place] drain was placed around the cord structures after adequate dissection and then the cord structures identified. There is no evidence of any indirect sac. The direct sac was then inverted back into the pleural cavity. Using the Prolene hernia mesh system the extended mesh was placed into the preperitoneal space and expanded superior leaflet was then attached to the pubic tubercle with 2-0 Vicryl suture. The lateral leaf was incised and wrapped around the cord structures. The fascia of external oblique was then sutured using 0 Vicryl suture. Care was taken to identify and preserve the ilioinguinal nerve. Once the fascia was closed Hannah's fascia is closed with 2 -0 Vicryl suture. The skin was closed with running 3-0 Monocryl suture. Dermabond dressings was applied. Next the right inguinal hernias repaired. The skin was incised using an 18 blade over the internal ring and then using blunt and sharp dissection and electrocautery the subcutaneous tissues were divided. There was a massive hernia sac visualized. The hernia sac was then dissected free from the scrotum. The spermatic vessels were then dissected free from the sac. The sac had incarcerated omentum. It was impossible to reduce the omentum. At this point the sac was opened. And the large amount of omentum was divided using the LigaSure device. The omentum was then reduced into the peritoneal cavity. The hernia sac underwent high ligation and then was secured with 0 Vicryl suture. At this point it was decided to perform a orchiectomy due to the large defect. It was felt that the defect could not be closed adequately if the spermatic vessels were left in position. At this point the orchiectomy is performed by dividing the spermatic vessels between Elizabeth clamps and ligating with 0 silk ties. Next a extended Prolene hernia mesh system plug was placed into the [id number]. The superior leaflet was attached pubic tubercle medially. And then the leaflet was placed just below the fascia external oblique. The fascia and oblique was then closed using 2-0 Prolene suture. There is no bleeding seen. Hannah's fascia is closed with 2-0 Vicryl suture. The skin was closed with running 3-0 Monocryl suture. Dermabond was applied. Patient was sent to recovery in stable condition.
[2017-01-15] MEDS: HYDROmorphone 1 MG/ML 1 ML SYRINGE IVP ONE ×2 (16:32→16:37)
[2017-01-15 17:24] LABS: Glucose,Whole Blood 145 mg/dL (75-99)
[2017-01-15] MEDS: KETOROLAC 30 MG/ML 1 ML VIAL IVP SCH (18:32)
[2017-01-15] MEDS ORDERED: INSULIN GLARGINE 100 UNIT/ML 10 ML VIAL SQ SCH (21:00)
[2017-01-15] MEDS: DOCUSATE 100 MG CAP PO SCH (21:24)
[2017-01-15] MEDS: ATORVASTATIN 80 MG TAB PO SCH (21:24)
[2017-01-15] MEDS: MAGNESIUM OXIDE 400 MG TAB PO SCH (21:24)
[2017-01-15 22:01] LABS: Glucose,Whole Blood 151 mg/dL (75-99)
[2017-01-16] MEDS: KETOROLAC 30 MG/ML 1 ML VIAL IVP SCH ×3 (00:19→14:34)
[2017-01-16 03:02] LABS: Glucose,Whole Blood 155 mg/dL (75-99)
[2017-01-16] MEDS: LEVOTHYROXINE 100 MCG TAB PO SCH (05:55)
[2017-01-16] MEDS: ALBUTEROL NEB (CONC) 2.5 MG/0.5 ML INHALATION SCH ×2 (07:39→11:46)
[2017-01-16 07:52] LABS: Glucose,Whole Blood 151 mg/dL (75-99)
[2017-01-16] MEDS: INSULIN LISPRO (humaLOG) 300 UNIT/3 ML VIAL SQ SCH ×2 (07:58→12:57)
[2017-01-16] MEDS: PANTOPRAZOLE 40 MG/10 ML VIAL IVP SCH (08:00)
[2017-01-16] MEDS: METOPROLOL TARTRATE 25 MG TAB PO SCH (08:00)
[2017-01-16] MEDS: DOCUSATE 100 MG CAP PO SCH (08:00)
[2017-01-16 08:02] VITALS: BP 127/66; RESP 20; TEMP 97.9
--- NOTE | 2017-01-16 10:00 | ECHOF ---
Referral Reason:OR Clearance MEASUREMENTS -------- HEIGHT: 152.4 cm WEIGHT: 99.8 kg BP: RVIDd: 3.8 cm (< 3.3) IVSd: 1.5 cm (0.6 - 1.1) LVIDd: 4.6 cm (3.9 - 5.3) LVPWd: 1.2 cm (0.6 - 1.1) IVSs: 1.7 cm LVIDs: 3.5 cm LVPWs: 1.8 cm LA Diam: 4.6 cm (2.7 - 3.8) MV EXCURSION: 14.837 mm (> 18.000) MV EF SLOPE: 41 mm/s (70 - 150) EPSS: 1.2 cm MV E Erik: 1.08 m/s MV DecT: 165 ms MV A Erik: 0.31 m/s MV E/A Ratio: 3.46 AV maxP.13 mmHg AV meanP.36 mmHg RAP: 5.00 mmHg RVSP: 35.30 mmHg FINDINGS -------- Paced rhythm. This was a technically adequate study. There is mild concentric left ventricular hypertrophy. Overall left ventricular systolic function is low-normal with, an EF between 50 - 55 %. The right ventricle is normal in size. The left atrium is moderately dilated. The right atrial size is normal. Peak/mean gradient across the Aortic Valve is 22.13mmHg / 11.36mmHg. Normally functioning bioprosthetic valve. Mild mitral annular calcification present. Mild mitral regurgitation is present. Mild tricuspid regurgitation present. There is mild pulmonary hypertension. The right ventricular systolic pressure, as measured by Doppler, is 35.30mmHg. There is no pulmonic regurgitation present. The aortic root size is normal. There is no pericardial effusion. CONCLUSIONS -------- 1. There is mild concentric left ventricular hypertrophy. 2. The right ventricular systolic pressure, as measured by Doppler, is 35.30mmHg. 3. Overall left ventricular systolic function is low-normal with, an EF between 50 - 55 %. 4. The left atrium is moderately dilated. 5. Peak/mean gradient across the Aortic Valve is 22.13mmHg / 11.36mmHg. 6. Normally functioning bioprosthetic valve. 7. Mild mitral annular calcification present. 8. Mild mitral regurgitation is present. 9. Mild tricuspid regurgitation present. 10. There is mild pulmonary hypertension. TEAM LEADER SURGERY: Lorin Pope RDCS
[2017-01-16 11:47] VITALS: PULSE 64
[2017-01-16 12:31] LABS: Glucose,Whole Blood 170 mg/dL (75-99)
[2017-01-16] MEDS: MULTIVITAMINS, THERA 1 EACH TAB PO SCH (12:58)
--- NOTE | 2017-01-16 13:47 | P.PN ---
Subjective Principal diagnosis: Right groin pain secondary to large right inguinal hernia This is a very pleasant 76-year-old gentleman who follows with Dr. Brand as his primary care physician. He has a history of coronary artery disease status post coronary artery bypass grafting, aortic valve replacement with a bioprosthetic valve, atrial flutter with previous ablation maintained on warfarin, hypertension, diabetes mellitus, hypothyroidism, hyperlipidemia. He also has a history of a collapsed left lung back in 2003 at which time he had an open lung procedure and chest tubes. Denies any cancer diagnosis. He was in [facility] for 52 days. He states he quit smoking in 1979. He also has a history of obstructive sleep apnea but had declined any CPAP machine. He states he has oxygen at home but has not used it for several years. He also states he has her rescue inhaler that he uses once or twice a week. He has not been seen by a hemodialysis charge nurse in several years. He had seen Dr. Miller in the past. He presented here yesterday with right groin pain. A computed tomography scan of the pelvis revealed evidence of a bilateral inguinal hernias right greater than left and he is scheduled for right inguinal hernia repair today. We are asked in consultation for preoperative clearance. The patient is seen again today 01/16/2017 in follow-up on the regular medical floor. He is status post right inguinal hernia repair, right orchiectomy, partial greater omentectomy. This is postoperative day #1. The patient is resting quite comfortably in bed. He denies any worsening shortness of breath, cough or congestion. His pain is well controlled. He is maintaining good O2 saturations in the 90s on 2 L/m per nasal cannula. He is afebrile. Objective - Vital Signs Vital signs: Vital Signs Temp 97.9 F 01/16/17 07:00 Pulse 64 01/16/17 11:57 Resp 20 01/16/17 07:00 BP 127/66 01/16/17 07:00 Pulse Ox 90 L 01/16/17 07:00 Intake & Output 01/15/17 01/16/17 01/16/17 18:59 06:59 18:59 Intake Total 1125 200 240 Output Total 620 575 Balance 505 -375 240 Weight 99.79 kg 99.79 kg Intake: IV 1125 Oral 200 240 Output: Urine 600 575 Estimated Blood Loss 20 Other: Voiding Method Urinal Urinal - Exam GENERAL EXAM: Morbidly obese. Alert, fairly comfortable in no apparent distress. HEAD: Normocephalic. EYES: Normal reaction of pupils, equal size. NOSE: Clear with pink turbinates. THROAT: There is crowding the posterior pharynx. No erythema or exudates. NECK: Short. No masses, no JVD. CHEST: No chest wall deformity. LUNGS: Equal air entry with no crackles, wheeze, rhonchi or dullness. CVS: S1 and S2 normal with no audible murmurs, regular rhythm. ABDOMEN: No hepatosplenomegaly, normal bowel sounds, no guarding or rigidity. SPINE: No scoliosis or deformity SKIN: No rashes CENTRAL NERVOUS SYSTEM: No focal deficits, tone is normal in all 4 extremities. Extremities: Incision to the right groin is clean dry well approximated. There is trace peripheral edema. Peripheral pulses are intact. - Labs CBC & Chem 7: 01/15/17 08:14 01/15/17 08:14 Labs: Abnormal Lab Results - Last 24 Hours (Table) 01/15/17 01/15/17 01/15/17 Range/Units 13:53 17:22 22:00 POC Glucose (mg/dL) 117 H 145 H 151 H (75-99) mg/dL 01/16/17 01/16/17 01/16/17 Range/Units 02:59 07:35 12:22 POC Glucose (mg/dL) 155 H 151 H 170 H (75-99) mg/dL Assessment and Plan Plan: Impression: #1 Right groin pain secondary to right inguinal hernia. Status post repair of an incarcerated right inguinal hernia, right orchiectomy and partial omentectomy. Postoperative day #1. #2 Remote history of chronic tobacco dependence suspect mild component of chronic obstructive pulmonary disease and utilizes albuterol as needed infrequently. #3 Obstructive sleep apnea, declined CPAP machine. #4 History of left lung collapse requiring chest tubes and surgical intervention back in 2003. Denies history of cancer. #5 Coronary artery disease status post coronary artery bypass grafting. #6 Aortic stenosis status post aortic valve replacement. #7 Atrial flutter status post ablation and permanent pacemaker implantation. Maintained on warfarin. #8 Hypertension. #9 Hyperlipidemia. #10 Diabetes mellitus, type II. #11 Hypothyroidism. #12 Obesity. Plan: The patient was seen and evaluated by Dr. Rudd. He is stable from the pulmonary standpoint. We will continue with bronchodilators. We've encouraged increased use of the incentive spirometer and cough and deep breathing exercises. We will increase his activity as tolerated. We will continue to follow and make further recommendations based on his clinical status.
--- NOTE | 2017-01-16 16:39 | PN ---
This patient underwent bilateral inguinal hernia repair. Patient has a history of atrial flutter. He is feeling well. He is not having any groin pain. Patient's vital signs are stable. Patient is afebrile. Heart rate is 65 to 70 per minute. Blood pressure is 127/67 mmHg. First and second heart sounds are normal. Lungs are clear to auscultation and percussion. This patient's INR has been remaining subtherapeutic and labile on Coumadin. In view of that, we will change it to Eliquis 5 mg b.i.d.
--- NOTE | 2017-01-16 18:31 | PN ---
Patient is admitted for inguinal hernia repair. Patient did well in the surgery. Patient is being discharged today, which is okay from my perspective. I did review his discharge medication reconciliation. Patient was started on Eliquis instead of Coumadin as per recommendations from Cardiology and patient is clinically doing well. Patient's previous echocardiogram that was done here showed normal ejection fraction. Since his blood pressures remained low and because of the poor renal function, I will cut down his home doses of Lasix to 40 mg daily and along with that will cut down the potassium as well. Patient came in with significantly low blood pressures because of which I am going to cut down his Enalapril as well. Amlodipine will be discontinued. If patient's blood pressures are high it is probably reasonable to increase the dose of enalapril as an outpatient. Patient is okay to be discharged from my perspective as long it is okay with the other consultants. I cut down his potassium as well. Patient when he came in, his potassium is on the high normal side. His electrolytes need to be checked when he sees his primary care physician. REVIEW OF SYSTEMS: CARDIOVASCULAR: No chest pain, no orthopnea, no PND, no palpitations. PULMONARY: Denied any shortness of breath. No cough or hemoptysis. GASTROINTESTINAL: No diarrhea, nausea or vomiting. No abdominal pain. Normoactive bowel sounds. NEUROLOGIC: No headaches, no weakness, no numbness. PHYSICAL EXAMINATION: Temperature 97.9, pulse of 60, respiratory rate 20, blood pressure 127/66, saturating at 90% on room air. GENERAL: The patient is alert and oriented x3, not in any acute distress. Well developed, well nourished. HEENT: Pupils are round and equally reacting to light. EOMI. No scleral icterus. No conjunctival pallor. Normocephalic, atraumatic. No pharyngeal erythema. No thyromegaly. CARDIOVASCULAR: S1 and S2 present. No murmurs, rubs, or gallops. PULMONARY: Chest is clear to auscultation, no wheezing or crackles. ABDOMEN: Deferred to Surgery. MUSCULOSKELETAL: No joint swelling or deformity. EXTREMITIES: No cyanosis, clubbing, or pedal edema. NEUROLOGICAL: Gross neurological examination did not reveal any focal deficits. SKIN: No rashes. Lab data was reviewed. Improved BUN and creatinine remained fairly stable. ASSESSMENT AND PLAN: 1. Status post right inguinal hernia repair. Patient is clinically doing well. 2. Atrial fibrillation, rate controlled. 3. Hypertension. 4. Type 2 diabetes mellitus. 5. Hypothyroidism. His medication reconciliation was reviewed. Patient is okay to be discharged from medical perspective. Patient is being initiated on Eliquis 5 mg twice a day as per Cardiology.
[2017-01-17] MEDS ORDERED: PANTOPRAZOLE 40 MG TABLET PO SCH (07:30)
--- NOTE | 2017-01-17 14:52 | P.DS ---
Providers Date of admission: 01/14/17 15:01 Expected date of discharge: 01/17/17 Attending physician: Gavin Guerra Consults: 01/14/17 16:39 Consult Physician Urgent Consulting Provider: Ericka Babb Consult Reason/Comments: cardiac clearence prior to surgery Do you want consulting provider notified?: Yes 01/14/17 16:40 Consult Physician Urgent Consulting Provider: Teodora Rudd Consult Reason/Comments: pulmonary clearence prior to surgery Do you want consulting provider notified?: Yes Primary care physician: Elian Torres [facility] Course: Patient is a 76-year-old male, patient of Dr. Torres in the outpatient setting, presenting to the hospital with complaints of right groin pain and swelling increasing in severity over the last [address] of abdomen and pelvis with evidence of large indirect right-sided inguinal hernia containing mesenteric fat and vessels and small inguinal hernia on the left. Patient was cleared for surgery by pulmonary service and cardiology service and underwent repair of right incarcerated inguinal hernia; right orchiectomy; partial greater omentectomy; and repair of left direct inguinal hernia on 2016. Patient tolerated procedure well. Patient had an uneventful postoperative course. Patient was discharged home in stable condition with close follow-up in the outpatient setting. Discharge diagnoses: Incarcerated right inguinal hernia status post repair of right incarcerated inguinal hernia Left inguinal hernia status post repair of left direct inguinal hernia Status post right orchiectomy Status post partial greater omentectomy The above impression and plan have been discussed and directed by Dr. Guerra. Enma RUBI acting as scribe for Dr. Guerra. Pertinent Studies: CT abdomen/pelvis; chest x-ray; echocardiogram with Doppler Procedures: Repair of right incarcerated inguinal hernia Right orchiectomy Partial greater Omentectomy Repair of left direct inguinal hernia Patient Condition at Discharge: Good Plan - Discharge Summary New Discharge Prescriptions: Apixaban [Eliquis] 5 mg PO BID #30 tab HYDROcodone/APAP 7.5-325MG [Canadian 7.5-325] 1 tab PO Q6HR PRN #28 tab PRN Reason: Pain Discharge Medication List Levothyroxine Sodium [Synthroid] 100 mcg PO DAILY 04/11/15 [History] Insulin NPH Human Isophane [NovoLIN N] 40 units SQ HS 11/07/15 [History] Atorvastatin [Lipitor] 80 mg PO HS 01/14/17 [History] Docusate Sodium [Dok] 100 mg PO DAILY PRN 01/14/17 [History] Magnesium Oxide [Mag-Ox] 400 mg PO HS 01/14/17 [History] Metoprolol Tartrate [Lopressor] 25 mg PO BID 01/14/17 [History] Multivitamin [Men's Multi-Vitamin] 1 tab PO DAILY@1200 01/14/17 [History] Nitroglycerin Sl Tabs [Nitrostat] 0.4 mg SUBLINGUAL Q5M PRN 01/14/17 [History] metFORMIN HCL 1,000 mg PO BID 01/14/17 [History] Apixaban [Eliquis] 5 mg PO BID #30 tab 01/16/17 [Rx] Enalapril [Vasotec] 5 mg PO DAILY #0 01/16/17 [Rx] Furosemide [Lasix] 40 mg PO DAILY #0 01/16/17 [Rx] HYDROcodone/APAP 7.5-325MG [Canadian 7.5-325] 1 tab PO Q6HR PRN #28 tab 01/16/17 [ Rx] Potassium Chloride [Klor-Con 20] 20 meq PO DAILY #0 01/16/17 [Rx] Follow up Appointment(s)/Referral(s): Elian Torres MD [Primary Care Provider] - 01/23/17 4:30 pm Gavin Guerra MD [STAFF PHYSICIAN] - 01/23/17 1:00 pm Patient Instructions/Handouts: Type 2 Diabetes in Adults (DC), Inguinal Hernia Repair (DC) Activity/Diet/Wound Care/Special Instructions: No heavy lifting, pushing, or pulling items greater than 10 pounds. Cardiac, diabetic diet Shower daily, no soaking in bath tubs, pools, or hot tubs. No driving while taking pain medication. Notify surgeon with any signs or symptoms of infection, increased pain, or not tolerating diet. Discharge Disposition: HOME SELF-CARE
== END 2017-01-16 14:59 | disposition home or self-care (01) | DRG 351 ==
LOC: EC 11:20 → 4MS4W 15:01
PROVIDERS: ADMIT Surgery; ATTEND Surgery
PROC: 0YU50JZ Supplement Right Inguinal Region with Synthetic Substitute, Open Approach (ICD-10-PCS; 2017-01-15)
PROC: 0VT90ZZ Resection of Right Testis, Open Approach (ICD-10-PCS; 2017-01-15)
PROC: 0DBS0ZZ (ICD-10-PCS; 2017-01-15)
PROC: 0YU60JZ Supplement Left Inguinal Region with Synthetic Substitute, Open Approach (ICD-10-PCS; principal; 2017-01-15 09:00)
DX: K40.30 Unilateral inguinal hernia, with obstruction, without gangrene, not specified as recurrent (principal); I48.92 Unspecified atrial flutter; E86.0 Dehydration; I48.91 Unspecified atrial fibrillation; J44.9 Chronic obstructive pulmonary disease, unspecified; E66.01 Morbid (severe) obesity due to excess calories; E03.9 Hypothyroidism, unspecified; I10 Essential (primary) hypertension; E11.9 Type 2 diabetes mellitus without complications; E78.5 Hyperlipidemia, unspecified; K40.90 Unilateral inguinal hernia, without obstruction or gangrene, not specified as recurrent; G47.33 Obstructive sleep apnea (adult) (pediatric); I25.10 Atherosclerotic heart disease of native coronary artery without angina pectoris; J45.909 Unspecified asthma, uncomplicated; K44.9 Diaphragmatic hernia without obstruction or gangrene; M19.90 Unspecified osteoarthritis, unspecified site; Z79.01 Long term (current) use of anticoagulants; Z79.4 Long term (current) use of insulin; Z79.899 Other long term (current) drug therapy; Z87.891 Personal history of nicotine dependence; Z95.0 Presence of cardiac pacemaker; Z95.1 Presence of aortocoronary bypass graft; Z95.2 Presence of prosthetic heart valve; Z95.5 Presence of coronary angioplasty implant and graft; Z96.60 Presence of unspecified orthopedic joint implant; Z68.31 Body mass index [BMI] 31.0-31.9, adult
CPT/HCPCS: 36415; 71010; 74177; 80048; 80053; 81003; 82150; 82550; 82553; 83036; 83605; 83690; 84484; 85025; 85610; 87086; 88302; 88305; 93306; 94640; 96361; 96374; 96375; 99285

== ENCOUNTER 2017-11-30 07:27 | Inpatient (IN) | payer MEDICARE ==
[2017-11-30 11:36] VITALS: BMI 35.0
[2017-11-30 13:25] LABS: Basophils % (A) 0 %; Eosinophils # (A) 0.1 k/uL (0-0.7); Eosinophils % (A) 1 %; HCT 36.3 % (39.0-53.0); HGB 11.1 gm/dL (13.0-17.5); Hypochromasia Slight; Lymphocytes # (A) 0.4 k/uL (1.0-4.8); Lymphocytes % (A) 5 %; MCH 28.3 pg (25.0-35.0); MCHC 30.5 g/dL (31.0-37.0); Mean Platelet Volume 8.6; Monocytes # (A) 0.5 k/uL (0-1.0); Monocytes % (A) 5 %; Neutrophils # (A) 8.7 k/uL (1.3-7.7); Neutrophils % (A) 89 %; Platelet Count 279 k/uL (150-450); RDW 15.4 % (11.5-15.5); WBC 9.8 k/uL (3.8-10.6)
[2017-11-30 13:35] LABS: ALT 36 U/L (21-72); AST 15 U/L (17-59); Albumin 3.5 g/dL (3.5-5.0); Alkaline Phosphatase 67 U/L (38-126); Anion Gap 8 mmol/L; Blood Urea Nitrogen 44 mg/dL (9-20); Calcium 9.1 mg/dL (8.4-10.2); Carbon Dioxide 29 mmol/L (22-30); Chloride 100 mmol/L (98-107); Glucose 340 mg/dL (74-99); Potassium 5.8 mmol/L (3.5-5.1); Sodium 137 mmol/L (137-145); Total Bilirubin 0.5 mg/dL (0.2-1.3); Total Protein 6.2 g/dL (6.3-8.2)
[2017-11-30] MEDS ORDERED: DOCUSATE 100 MG CAP PO PRN (14:15)
[2017-11-30] MEDS ORDERED: INSULIN NPH/REG INSULIN 70/30 300 UNIT/3 ML VIAL SQ SCH (14:15)
[2017-11-30] MEDS ORDERED: NITROGLYCERIN SL TABS 0.4 MG TAB SUBLINGUAL PRN (14:15)
[2017-11-30] MEDS: FUROSEMIDE 40 MG TAB PO SCH (14:51)
[2017-11-30] MEDS: LEVOTHYROXINE 100 MCG TAB PO SCH (14:52)
--- NOTE | 2017-11-30 15:04 | P.HPIM ---
History of Present Illness H&P Date: 11/30/17 Chief Complaint: Shortness of breath Patient is a 77-year-old male with a known history of coronary artery disease with history of stent placement, atrial fibrillation on anticoagulation with eliquis, diabetes type 2, hypertension, upset to sleep apnea and hypothyroidism was sent from [place] in the hospital due to positive blood cultures with diphtheria. Patient was initially presented to [place] on 11/24/2017 with complaints of shortness of breath and was being treated for acute COPD exacerbation and pneumonia. Patient was on prednisone and levofloxacin. Patient was also having hyperglycemia and was being treated with insulin dosing. Today patient was found have blood cultures positive for diphtheria. One out of 2 bottles after 48 hours. Patient was empirically started on antibiotics in the form of erythromycin 500 mg every 6 hourly and was transferred to [facility] for further radiation by infectious disease specialist. Currently patient denied any worsening shortness of breath or chest pain. Patient had chest x-ray done at [facility] in the hospital showed retrocardiac airspace disease and small pleural effusion and left basilar atelectasis. CT chest showed no evidence of pulmonary embolism. Infiltrates with air bronchograms indicated above is just disease involving the left lower lobe with them accompanying small left-sided pleural effusion R reaction. Additional patchy density in the left lateral portion of the upper lobe measuring 8 mm. patient received levofloxacin from 11/24/2017 to 11/30/2017. Review of Systems Constitutional: Patient denies any fever or chills . No generalized weakness or weight loss. Abdomen: Patient denied nausea vomiting and diarrhea and abdominal pain. Cardiovascular: Patient denies any chest pain. Positive shortness of breath no palpitations. Respiratory: patient denied any cough or production. + shortness of breath Neurologic: Patient denied any numbness or tingling headache. Musculoskeletal: Patient denies any complaints of joint swelling or deformity. Skin: Negative Psychiatric: Negative Endocrine: No heat or cold intolerance. No recent weight gain. Genitourinary: No dysuria or hematuria. All other 14 point ROS negative except the above Past Medical History Past Medical History: Atrial Fibrillation, Atrial Flutter, Asthma, Coronary Artery Disease (CAD), COPD, Diabetes Mellitus, Hyperlipidemia, Hypertension, Osteoarthritis (OA), Pneumonia, Sleep Apnea/CPAP/BIPAP, Thyroid Disorder Additional Past Medical History / Comment(s): "FREQUENT NOSE BLEEDS", PAST AFLUTTER, ASTHMA CHILD, NO CPAP MACHINE USED, PAST EAR INFECTIONS, WEARS DEPENDS-URINARY INCONT. BALANCE ISSUES AT TIMES USES A WALKER. has implanted pacemaker and has had valve replacement History of Any Multi-Drug Resistant Organisms: None Reported Past Surgical History: Appendectomy, Back Surgery, Cardiac Valve Replacement, Heart Catheterization With Stent, Joint Replacement, Pacemaker, Tonsillectomy Additional Past Surgical History / Comment(s): AORTIC VALVE REPLACMENT PT STATED "ALSO HAD 2 VESSELS DONE", some kind of lung surgery in 2003, KELSEA, CARDIOVERSION. PNEUMOTHORAX HAD SOME TYPE OF SX AND A C/T.RT HIP REPLACMENT. Past Anesthesia/Blood Transfusion Reactions: No Reported Reaction Additional Past Anesthesia/Blood Transfusion Reaction / Comment(s): RECEIVED BLOOD IN PAST -NO REACTION TO IT. Date of Last Stent Placement:: UNK Type of Cardiac Device: Permanent Pacemaker Device Placement Date:: UNK Past Psychological History: No Psychological Hx Reported Additional Psychological History / Comment(s): PT LIVES WITH BROTHER AND HIS SISTER IN LAW. PT DRIVES, STATES OCC HAS BALANCE ISSUES AND HAS A WALKER IF NEEDED. HAS 3 STEPS UP INTO HOUSE. NO OUTSIDE SERVICES RECIEVED AT PRESENT TIME. STATED HAS 02 MACHINE AT HOME SINCE LUNG SX BUT DOES'NT USE IT. Smoking Status: Former smoker Past Alcohol Use History: Rare Additional Past Alcohol Use History / Comment(s): QUIT SMOKING 1979 Past Drug Use History: None Reported - Past Family History Mother Family Medical History: CVA/TIA Father Family Medical History: Cancer Medications and Allergies Home Medications Medication Instructions Recorded Confirmed Type Levothyroxine Sodium [Synthroid] 100 mcg PO DAILY 04/11/15 11/30/17 History Atorvastatin [Lipitor] 80 mg PO HS 01/14/17 11/30/17 History Docusate Sodium [Dok] 100 mg PO DAILY PRN 01/14/17 11/30/17 History Metoprolol Tartrate [Lopressor] 25 mg PO BID 01/14/17 11/30/17 History Multivitamin [Men's Multi-Vitamin] 1 tab PO DAILY@1200 01/14/17 11/30/17 History Nitroglycerin Sl Tabs [Nitrostat] 0.4 mg SUBLINGUAL Q5M PRN 01/14/17 01/14/17 History metFORMIN HCL 1,000 mg PO BID 01/14/17 11/30/17 History Apixaban [Eliquis] 5 mg PO BID #30 tab 01/16/17 11/30/17 Rx Furosemide [Lasix] 40 mg PO DAILY #0 01/16/17 11/30/17 Rx Albuterol Nebulized [Ventolin 2.5 mg INHALATION RT-Q6H PRN 11/30/17 11/30/17 History Nebulized] Enalapril [Vasotec] 10 mg PO BID 11/30/17 11/30/17 History Montelukast [Singulair] 10 mg PO DAILY 11/30/17 11/30/17 History Potassium Chloride [Klor-Con 20] 20 meq PO BID 11/30/17 11/30/17 History Relion 70/30 Ins 42 units SQ DAILY 11/30/17 11/30/17 History amLODIPine [Norvasc] 10 mg PO DAILY 11/30/17 11/30/17 History Allergies Allergy/AdvReac Type Severity Reaction Status Date / Time No Known Allergies Allergy Verified 11/30/17 12:24 Physical Exam Vitals: Vital Signs Temp Pulse Resp BP Pulse Ox 11/30/17 10:57 97.1 F L 60 18 114/67 94 L Intake and Output 11/29/17 11/30/17 11/30/17 22:59 06:59 14:59 Other: Voiding Method Toilet Urinal Weight 110.722 kg Patient Weight 12/01/17 06:59 Weight 110.722 kg PHYSICAL EXAMINATION: Patient is lying in the bed comfortably, no acute distress, awake alert and oriented.. HEENT: Normocephalic. Neck is supple. Pupils reactive. Nostrils clear. Oral cavity is moist. Ears reveal no drainage. Neck reveals no JVD, carotid bruits, or thyromegaly. CHEST EXAMINATION: Trachea is central. Symmetrical expansion. Right basal crackles. Expiratory wheezing positive. CARDIAC: Normal S1, S2 with no gallops. No murmurs ABDOMEN: Soft. Bowel sounds normal. No organomegaly. No abdominal bruits. Extremities: reveal 1+ edema. No clubbing or cyanosis Neurologically awake, alert, oriented x3 with well-coordinated movements. No focal deficits noted Skin: No rash or skin lesions. Psychiatric: Coperative. Nonsuicidal Musculoskeletal: No joint swelling or deformity. Normal range of motion. Results CBC & Chem 7: 11/30/17 13:12 11/30/17 13:12 Labs: Abnormal Lab Results - Last 24 Hours (Table) 11/30/17 11/30/17 Range/Units 13:12 13:12 RBC 3.90 L (4.30-5.90) m/uL Hgb 11.1 L (13.0-17.5) gm/dL Hct 36.3 L (39.0-53.0) % MCHC 30.5 L (31.0-37.0) g/dL Neutrophils # 8.7 H (1.3-7.7) k/uL Lymphocytes # 0.4 L (1.0-4.8) k/uL Potassium 5.8 H (3.5-5.1) mmol/L BUN 44 H (9-20) mg/dL Glucose 340 H (74-99) mg/dL AST 15 L (17-59) U/L Total Protein 6.2 L (6.3-8.2) g/dL Thrombosis Risk Factor Assmnt - DVT/VTE Prophylaxis DVT/VTE Prophylaxis: Pharmacologic Prophylaxis ordered - Choose All That Apply Each Factor Represents 1 point: Abnormal pulmonary function (COPD), Medical pt on bed rest, Obesity (BMI >25), Serious lung disease incl. pneumonia (< 1month) Each Risk Factor Represents 2 Points: Patient confined to bed Other congenital or acquired thrombophilia - If yes, enter type in comment: No Thrombosis Risk Factor Assessment Total Risk Factor Score: 6 Thrombosis Risk Factor Assessment Level: High Risk Assessment and Plan Assessment: Acute COPD/asthma exacerbation Hyperglycemia with uncontrolled diabetes type 2 Left-sided pneumonia. Completed levofloxacin for 7 days. Positive blood cultures with gram-positive bacilli/diphtheria. Possible contaminant. Acute on chronic diastolic CHF with mild exacerbation. Improving now Atrial fibrillation with history of pacemaker placement. On anticoagulation Coronary artery disease status post stent placement and two-vessel bypass History of Aortic valve replacement Hypertension Hyperlipidemia Osteoarthritis. Objective sleep apnea on CPAP at home Hypothyroidism Hyperkalemia likely due to potassium supplementation. Will hold at this time Prerenal azotemia. Possibly due to diuresis and steroids. Plan: Patient will be continued on Erithromycin and ID was consulted for further evaluation. Patient will be continued on breathing treatments and prednisone 40 mg daily. Continue with Lasix and hold potassium supplementation due to hyperkalemia. Continue with the oxygen therapy and follow closely. Continue with home medications. Further recommendations based on the clinical course. Prognosis is guarded with multiple medical problems and comorbid conditions. Time with Patient: Greater than 30
[2017-11-30] MEDS: IPRATROPIUM-ALBUTEROL 3 ML NEB INHALATION SCH ×2 (15:25→18:55)
[2017-11-30 17:26] LABS: Glucose,Whole Blood 363 mg/dL (75-99)
[2017-11-30] MEDS: predniSONE 50 MG TAB PO SCH (17:44)
[2017-11-30] MEDS ORDERED: INSULIN ASPART 100 UNIT/ML 1 ML 10 ML VIAL SQ ONE (17:47)
[2017-11-30 19:58] LABS: Glucose,Whole Blood 509 mg/dL (75-99)
[2017-11-30] MEDS ORDERED: INSULIN REGULAR 100 UNIT in SODIUM CHLORIDE 0.9% 100 ML IV SCH (20:30)
[2017-11-30] MEDS ORDERED: INSULIN ASPART 100 UNIT/ML 1 ML 10 ML VIAL SQ SCH (21:00)
[2017-11-30] MEDS: ATORVASTATIN 80 MG TAB PO SCH (21:14)
[2017-11-30] MEDS: metFORMIN 500 MG TAB PO SCH (21:14)
[2017-11-30] MEDS: APIXABAN 5 MG TAB PO SCH (21:14)
[2017-11-30] MEDS: LISINOPRIL 20 MG TAB PO SCH (21:15)
[2017-11-30] MEDS: METOPROLOL TARTRATE 25 MG TAB PO SCH (21:15)
[2017-11-30 21:28] LABS: Glucose,Whole Blood 449 mg/dL (75-99)
[2017-11-30 22:23] LABS: Glucose,Whole Blood 486 mg/dL (75-99)
[2017-11-30 22:23] LABS: Glucose,Whole Blood 463 mg/dL (75-99)
[2017-11-30 22:23] LABS: Glucose,Whole Blood 426 mg/dL (75-99)
[2017-11-30 22:54] LABS: Glucose,Whole Blood 472 mg/dL (75-99)
[2017-11-30 22:59] LABS: Hemoglobin A1C 11.6 % (4.0-6.0)
[2017-11-30 23:26] LABS: Glucose,Whole Blood 292 mg/dL (75-99)
[2017-11-30 23:59] LABS: Glucose,Whole Blood 239 mg/dL (75-99)
[2017-12-01 02:02] LABS: Glucose,Whole Blood 135 mg/dL (75-99)
[2017-12-01] MEDS: INSULIN REGULAR 100 UNIT in SODIUM CHLORIDE 0.9% 100 ML IV SCH ×2 (03:55→15:24)
[2017-12-01 04:08] LABS: Glucose,Whole Blood 178 mg/dL (75-99)
[2017-12-01 05:50] LABS: Glucose,Whole Blood 205 mg/dL (75-99)
[2017-12-01] MEDS: LEVOTHYROXINE 100 MCG TAB PO SCH (06:16)
[2017-12-01] MEDS: IPRATROPIUM-ALBUTEROL 3 ML NEB INHALATION SCH ×4 (07:04→19:08)
[2017-12-01] MEDS ORDERED: INSULIN ASPART 100 UNIT/ML 1 ML 10 ML VIAL SQ SCH ×3 (07:30)
[2017-12-01 08:02] LABS: Glucose,Whole Blood 204 mg/dL (75-99)
[2017-12-01] MEDS: INSULIN ASPART 100 UNIT/ML 1 ML 10 ML VIAL SQ SCH ×3 (08:19→17:41)
[2017-12-01] MEDS: APIXABAN 5 MG TAB PO SCH ×2 (08:20→20:11)
[2017-12-01] MEDS: LISINOPRIL 20 MG TAB PO SCH ×2 (08:20→20:11)
[2017-12-01] MEDS: cefTRIAXone IN SWFI 1,000 MG/10 ML SYRINGE IVP SCH ×2 (08:20→11:00)
[2017-12-01] MEDS: FUROSEMIDE 40 MG TAB PO SCH (08:20)
[2017-12-01] MEDS: METOPROLOL TARTRATE 25 MG TAB PO SCH ×2 (08:21→20:11)
[2017-12-01] MEDS: metFORMIN 500 MG TAB PO SCH ×2 (08:21→20:11)
[2017-12-01] MEDS: predniSONE 50 MG TAB PO SCH (08:21)
[2017-12-01] MEDS: MONTELUKAST 10 MG TAB PO SCH (08:21)
--- NOTE | 2017-12-01 09:10 | XR ---
EXAMINATION TYPE: XR chest 2V DATE OF EXAM: 12/01/2017 COMPARISON: 10/16/2017 HISTORY: 77-year-old male with cough, evaluate for pneumonia TECHNIQUE: Frontal and lateral views FINDINGS: Median sternotomy wires are present with prosthetic aortic valve. Left anterior chest wall pacemaker generator with right atrial and right ventricular leads. Heart upper limits of normal in size. Mild i nterstitial prominence of the chronic appearance. Left basilar opacity has a somewhat strandy appeara nce suggesting atelectasis rather than infiltrate. No pleural effusion. IMPRESSION: Heart upper limits of normal in size. Left basilar opacity has a more strandy configuration suggestin g atelectasis rather than infiltrate. Follow-up can be considered.
[2017-12-01 09:58] LABS: Glucose,Whole Blood 403 mg/dL (75-99)
[2017-12-01 10:03] LABS: Anion Gap 12 mmol/L; Blood Urea Nitrogen 46 mg/dL (9-20); Calcium 9.1 mg/dL (8.4-10.2); Carbon Dioxide 30 mmol/L (22-30); Chloride 97 mmol/L (98-107); Glucose 330 mg/dL (74-99); Magnesium 2.6 mg/dL (1.6-2.3); Phosphorus 4.1 mg/dL (2.5-4.5); Potassium 5.4 mmol/L (3.5-5.1); Sodium 139 mmol/L (137-145)
[2017-12-01 11:26] LABS: T4, Free (Free Thyroxine) 1.04 ng/dL (0.78-2.19)
--- NOTE | 2017-12-01 11:50 | ECHOF ---
Referral Reason:arrhythmmia MEASUREMENTS -------- HEIGHT: 177.8 cm WEIGHT: 110.7 kg BP: 129/70 RVIDd: 3.4 cm (< 3.3) IVSd: 1.5 cm (0.6 - 1.1) LVIDd: 4.7 cm (3.9 - 5.3) LVPWd: 1.4 cm (0.6 - 1.1) IVSs: 2.0 cm LVIDs: 3.5 cm LVPWs: 1.9 cm LA Diam: 4.2 cm (2.7 - 3.8) LAESV Index (A-L): 43.15 ml/m Ao Diam: 3.0 cm (2.0 - 3.7) AV Cusp: 2.0 cm (1.5 - 2.6) MV EXCURSION: 15.271 mm (> 18.000) MV EF SLOPE: 19 mm/s (70 - 150) EPSS: 0.8 cm AV maxP.71 mmHg AV meanP.91 mmHg RAP: 5.00 mmHg RVSP: 24.40 mmHg FINDINGS -------- This was a technically adequate study. The left ventricular size is normal. There is moderate concentric left ventricular hypertrophy. O verall left ventricular systolic function is normal with, an EF between 65 - 70 %. The right ventricle is mildly enlarged. LA is severely dilated >40 ml/m2 The right atrium is normal in size. Aortic valve is trileaflet and is mildly thickened. Peak/mean gradient across the Aortic Valve is 1 4.71mmHg / 6.91mmHg. Normally functioning bioprosthetic valve. The mitral valve leaflets are moderately thickened. Moderate mitral annular calcification present. There is trace to mild mitral regurgitation. The peak and mean MV gradients are 13.82mmHg 3.47mm Hg as measured by doppler. Mild tricuspid regurgitation present. Right ventricular systolic pressure is normal at < 35 mmHg. Trace/mild (physiologic) pulmonic regurgitation. The aortic root size is normal. Normal inferior vena cava with normal inspiratory collapse consistent with estimated right atrial pre ssure of 5 mmHg. There is no pericardial effusion. CONCLUSIONS -------- 1. This was a technically adequate study. 2. The left ventricular size is normal. 3. There is moderate concentric left ventricular hypertrophy. 4. Overall left ventricular systolic function is normal with, an EF between 65 - 70 %. 5. The right ventricle is mildly enlarged. 6. LA is severely dilated >40 ml/m2 7. The right atrium is normal in size. 8. Aortic valve is trileaflet and is mildly thickened. 9. Peak/mean gradient across the Aortic Valve is 14.71mmHg / 6.91mmHg. 10. Normally functioning bioprosthetic valve. 11. The mitral valve leaflets are moderately thickened. 12. Moderate mitral annular calcification present. 13. There is trace to mild mitral regurgitation. 14. The peak and mean MV gradients are 13.82mmHg 3.47mmHg as measured by doppler. 15. Mild tricuspid regurgitation present. 16. Right ventricular systolic pressure is normal at < 35 mmHg. 17. Trace/mild (physiologic) pulmonic regurgitation. 18. The aortic root size is normal. 19. Normal inferior vena cava with normal inspiratory collapse consistent with estimated right atrial pressure of 5 mmHg. 20. There is no pericardial effusion. [employer] WORKER: Jennyfer Diane RDCS
[2017-12-01 11:58] LABS: Glucose,Whole Blood 265 mg/dL (75-99)
--- NOTE | 2017-12-01 12:06 | CDI ---
Last Revision, October 2017 Documentation Clarification Form Date: 12/01/2017 11:53:00 AM From: Tiffanie Auguste RN, CCDS Admit Date: 11/30/2017 10:47:00 AM Patient Name: Jonathon Hacth Visit Number: [id number] ATTENTION: The Clinical Documentation Specialists (CDI) and [facility] Coding Staff appreciate your assistance in clarifying documentation. Please respond to the clarification below the line at the bottom and electronically sign. The CDI & [facility] Coding staff will review the response and follow-up if needed. Please note: Queries are made part of the Legal Health Record. If you have any questions, please contact the author of this message via ITS. Dr. Poornima Pelayo Atrial fibrillation is documented in the PMH. History/Risk Factors: "Atrial fib on anticoagulation with eliquis", cad, copd, Athsma, SIMEON, HTN, Pneumonia Clinical Indicators: EKG: ordered, not scanned in Treatment: Consults: Cardiology Meds: 40 mg Lasix, Zestril 20 mg PO BID, Lopressor 25 mg BID In your professional opinion, can you please clarify the type of atrial fibrillation, if known? Chronic/Permanent Paroxysmal Persistent Other, please specify Unable to determine Please continue to document in your progress notes and discharge summary in order to capture severity of illness and risk of mortality. Include clinical findings that support your diagnosis. MTDD
--- NOTE | 2017-12-01 12:21 | P.CRDCN ---
History of Present Illness Consult date: 12/01/17 History of present illness: Mr. Hatch is a pleasant 77-year-old male with past medical history significant for coronary artery disease with subsequent 2-vessel bypass grafting, aortic valve replacement, dyslipidemia, hypertension, diabetes mellitus, persistent atrial fibrillation on termite control servicer anticoagulation with eliquis, pacemaker implantation secondary to complete heart block. He follows in the office with Dr. العلي. He has been hospitalized at [facility] and treated for COPD exacerbation and pneumonia with levofloxacin x7 days. Blood cultures obtained and were positive for gram-positive bacilli/diptheria. Antibiotics were subsequently changed to erythromycin and he was transferred here for higher level of care. Infectious disease is consulted. We have been asked to see him in consultation for a 9-beat run of non-sustained ventricular tachycardia this morning. He was asymptomatic at the time of arrhythmia. Denies chest pain, shortness of breath, dizziness, palpitations, nausea/vomiting or diaphoresis. EKG on arrival paced with underlying atrial fibrillation. Chest xray heart size is increased, left basilar opacity suggesting atelectasis vs infiltrate. CTA was negative for PE at [facility]. Most recent echocardiogram done in the office 07/2017 reveals preserved left ventricular systolic function with EF 55%, moderately dilated left atrium, mildly dilated right atrium, biological AV prostesis with normal function. Bypass grafting was done in 2009 with SVG-diagonal 1 and SVG to OM1. Most recent Lexiscan stress test done 07/2017 is negative for reversible cardiac ischemia. Laboratory data reviewed, potassium 5.4 was 5.8 on admission, magnesium 2.6, TSH 0.429, cardiac enzymes negative x1, hgb 11.1, plt 279, creastinine 1.0, BUN 44, blood sugars have been consistently elevated. Current cardiac medications include amlodipine 10 mg daily, potassium chloride 20 MEQ BID, lopressor 25 mg BID, lasix 40 mg daily, enalapril 10 mg BID, atorvastatin 80 mg daily and eliquis 5 mg BID. Review of Systems CONSTITUTIONAL: Denies fever. Denies chills. EYES: Denies blurred vision. Denies vision changes. Denies eye pain. EARS, NOSE, MOUTH & THROAT: Denies headache. Denies sore throat. Denies ear pain. CARDIOVASCULAR: Denies chest pain. Complains of shortness of breath. Denies orthopnea. Denies PND. Denies palpitations. RESPIRATORY: Denies cough. GASTROINTESTINAL: Denies abdominal pain. Denies diarrhea. Denies constipation. Denies nausea. Denies vomiting. MUSCULOSKELETAL: Denies myalgias. INTEGUMENTARY: Denies pruitis. Denies rash. NEUROLOGIC: Denies numbness. Denies tingling. Denies weakness. PSYCHIATRIC: Denies anxiety. Denies depression. ENDOCRINE: Denies fatigue. Denies weight change. Denies polydipsia. Denies polyurina. GENITOURINARY: Denies burning, hematuria or urgency with micturation. HEMATOLOGIC: Denies history of anemia. Denies bleeding. Past Medical History Past Medical History: Atrial Fibrillation, Atrial Flutter, Asthma, Coronary Artery Disease (CAD), COPD, Diabetes Mellitus, Hyperlipidemia, Hypertension, Osteoarthritis (OA), Pneumonia, Sleep Apnea/CPAP/BIPAP, Thyroid Disorder Additional Past Medical History / Comment(s): "FREQUENT NOSE BLEEDS", PAST AFLUTTER, ASTHMA CHILD, NO CPAP MACHINE USED, PAST EAR INFECTIONS, WEARS DEPENDS-URINARY INCONT. BALANCE ISSUES AT TIMES USES A WALKER. has implanted pacemaker and has had valve replacement History of Any Multi-Drug Resistant Organisms: None Reported Past Surgical History: Appendectomy, Back Surgery, Cardiac Valve Replacement, Heart Catheterization With Stent, Joint Replacement, Pacemaker, Tonsillectomy Additional Past Surgical History / Comment(s): AORTIC VALVE REPLACMENT PT STATED "ALSO HAD 2 VESSELS DONE", some kind of lung surgery in 2003, [place], CARDIOVERSION. PNEUMOTHORAX HAD SOME TYPE OF SX AND A C/T.RT HIP REPLACMENT. Past Anesthesia/Blood Transfusion Reactions: No Reported Reaction Additional Past Anesthesia/Blood Transfusion Reaction / Comment(s): RECEIVED BLOOD IN PAST -NO REACTION TO IT. Date of Last Stent Placement:: UNK Type of Cardiac Device: Permanent Pacemaker Device Placement Date:: UNK Past Psychological History: No Psychological Hx Reported Additional Psychological History / Comment(s): PT LIVES WITH BROTHER AND HIS SISTER IN LAW. PT DRIVES, STATES OCC HAS BALANCE ISSUES AND HAS A WALKER IF NEEDED. HAS 3 STEPS UP INTO HOUSE. NO OUTSIDE SERVICES RECIEVED AT PRESENT TIME. STATED HAS 02 MACHINE AT HOME SINCE LUNG SX BUT DOES'NT USE IT. Smoking Status: Former smoker Past Alcohol Use History: Rare Additional Past Alcohol Use History / Comment(s): QUIT SMOKING 1979 Past Drug Use History: None Reported - Past Family History Mother Family Medical History: CVA/TIA Father Family Medical History: Cancer Medications and Allergies Home Medications Medication Instructions Recorded Confirmed Type Levothyroxine Sodium [Synthroid] 100 mcg PO DAILY 04/11/15 11/30/17 History Atorvastatin [Lipitor] 80 mg PO HS 01/14/17 11/30/17 History Docusate Sodium [Dok] 100 mg PO DAILY PRN 01/14/17 11/30/17 History Metoprolol Tartrate [Lopressor] 25 mg PO BID 01/14/17 11/30/17 History Multivitamin [Men's Multi-Vitamin] 1 tab PO DAILY@1200 01/14/17 11/30/17 History Nitroglycerin Sl Tabs [Nitrostat] 0.4 mg SUBLINGUAL Q5M PRN 01/14/17 01/14/17 History metFORMIN HCL 1,000 mg PO BID 01/14/17 11/30/17 History Apixaban [Eliquis] 5 mg PO BID #30 tab 01/16/17 11/30/17 Rx Furosemide [Lasix] 40 mg PO DAILY #0 01/16/17 11/30/17 Rx Albuterol Nebulized [Ventolin 2.5 mg INHALATION RT-Q6H PRN 11/30/17 11/30/17 History Nebulized] Enalapril [Vasotec] 10 mg PO BID 11/30/17 11/30/17 History Montelukast [Singulair] 10 mg PO DAILY 11/30/17 11/30/17 History Potassium Chloride [Klor-Con 20] 20 meq PO BID 11/30/17 11/30/17 History Relion 70/30 Ins 42 units SQ DAILY 11/30/17 11/30/17 History amLODIPine [Norvasc] 10 mg PO DAILY 11/30/17 11/30/17 History Allergies Allergy/AdvReac Type Severity Reaction Status Date / Time No Known Allergies Allergy Verified 11/30/17 12:24 Physical Exam Vitals: Vital Signs Temp Pulse Pulse Resp BP Pulse Ox 12/01/17 07:15 100 12/01/17 07:05 69 12/01/17 07:00 97.2 F L 60 16 129/70 96 11/30/17 22:02 98.1 F 60 18 122/58 95 11/30/17 19:12 68 18 11/30/17 18:57 66 18 11/30/17 16:00 60 18 11/30/17 15:27 68 18 11/30/17 15:00 97.3 F L 106 H 20 129/69 97 11/30/17 10:57 97.1 F L 60 18 114/67 94 L Intake and Output 11/30/17 12/01/17 12/01/17 22:59 06:59 14:59 Intake Total 38.885 63.647 20.790 Output Total 450 400 Balance -411.115 63.647 -379.210 Intake: Intake, IV Titration 38.885 63.647 20.790 Amount Insulin Regular 100 unit 38.885 55.904 In Sodium Chloride 0.9% 100 ml @ Titrate IV .Q0M [facility] Rx#:[id number] Insulin Regular 100 unit 7.743 20.790 In Sodium Chloride 0.9% 100 ml @ Titrate IV .Q0M [facility] Rx#:[id number] Output: Urine 450 400 Other: Voiding Method Toilet Toilet Urinal Urinal # Voids 3 2 1 # Bowel Movements 1 Weight 110.722 kg Blood pressure 129/70 heart rate 60 afebrile. GENERAL: This is a 77-year-old male in no apparent distress at the time of my examination. HEENT: Head is atraumatic, normocephalic. Pupils are equal, round. Sclerae anicteric. Conjunctivae are clear. Mucous membranes of the mouth are moist. Neck is supple. There is no jugular venous distention. No carotid bruit is heard. LUNGS: Faint expiratory wheezes. Scattered rhonchi. No rales. No chest wall tenderness is noted on palpation or with deep breathing. Diminished b/l. HEART: Irregular rate and rhythm with systolic murmur at the base, no rubs or gallops. S1 and S2 heard. ABDOMEN: Soft, nontender. Bowel sounds are heard. No organomegaly noted. EXTREMITIES: Lower extremity edema b/l, 1+ pitting and no calf tenderness noted. VASCULAR: Radial and dorsalis pedal pulses strong and intact. NEUROLOGIC: Patient is awake, alert and oriented x3. Results 11/30/17 13:12 12/01/17 09:30 Cardiac Enzymes 11/30/17 12/01/17 Range/Units 13:12 09:30 AST 15 L (17-59) U/L Troponin I <0.012 (0.000-0.034) ng/mL CBC 11/30/17 Range/Units 13:12 WBC 9.8 (3.8-10.6) k/uL RBC 3.90 L (4.30-5.90) m/uL Hgb 11.1 L (13.0-17.5) gm/dL Hct 36.3 L (39.0-53.0) % Plt Count 279 (150-450) k/uL Comprehensive Metabolic Panel 11/30/17 12/01/17 Range/Units 13:12 09:30 Sodium 137 139 (137-145) mmol/L Potassium 5.8 H 5.4 H (3.5-5.1) mmol/L Chloride 100 97 L (98-107) mmol/L Carbon Dioxide 29 30 (22-30) mmol/L BUN 44 H 46 H (9-20) mg/dL Creatinine 1.00 1.14 (0.66-1.25) mg/dL Glucose 340 H 330 H (74-99) mg/dL Calcium 9.1 9.1 (8.4-10.2) mg/dL AST 15 L (17-59) U/L ALT 36 (21-72) U/L Alkaline Phosphatase 67 (38-126) U/L Total Protein 6.2 L (6.3-8.2) g/dL Albumin 3.5 (3.5-5.0) g/dL Current Medications Generic Name Dose Route Start Last Admin Trade Name Freq PRN Reason Stop Dose Admin Albuterol/Ipratropium 3 ml 11/30/17 16:00 12/01/17 07:04 Duoneb 0.5 Mg-3 Mg/3 Ml Soln INHALATION 3 ml RT-QID [facility] Administration Apixaban 5 mg 11/30/17 21:00 12/01/17 08:20 Eliquis PO 5 mg BID [facility] Administration Atorvastatin Calcium 80 mg 11/30/17 21:00 11/30/17 21:14 Lipitor PO 80 mg HS [facility] Administration Ceftriaxone Sodium 1,000 mg 12/01/17 09:00 Rocephin IVP Q24HR [facility] Docusate Sodium 100 mg 11/30/17 14:15 Colace PO DAILY PRN Constipation Furosemide 40 mg 11/30/17 14:15 12/01/17 08:20 Lasix PO 40 mg DAILY [facility] Administration Insulin Human Regular 100 unit 101 mls @ 0 mls/hr 12/01/17 00:15 12/01/17 09: 57 / Sodium Chloride IV 18 units/hr .Q0M [facility] 18.18 mls/hr Protocol Titration Titrate Insulin Aspart 14 unit 12/01/17 07:30 12/01/17 08:19 Novolog 0.13 unit/kg (14 unit) 14 unit SQ Administration AC-TID [facility] Levothyroxine Sodium 100 mcg 11/30/17 14:15 12/01/17 06:16 Synthroid PO 100 mcg 0630 [facility] Administration Lisinopril 20 mg 11/30/17 21:00 12/01/17 08:20 Zestril PO 20 mg BID [facility] Administration Metformin HCl 1,000 mg 11/30/17 21:00 12/01/17 08:21 Glucophage PO 1,000 mg BID [facility] Administration Metoprolol Tartrate 25 mg 11/30/17 21:00 12/01/17 08:21 Lopressor PO 25 mg BID [facility] Administration Montelukast Sodium 10 mg 12/01/17 09:00 12/01/17 08:21 Singulair PO 10 mg DAILY [facility] Administration Multivitamins 1 each 12/01/17 12:00 Theragran PO DAILY@1200 [facility] Nitroglycerin 0.4 mg 11/30/17 14:15 Nitrostat SUBLINGUAL Q5M PRN Chest Pain Prednisone 50 mg 11/30/17 15:00 12/01/17 08:21 PO 50 mg DAILY [facility] Administration Intake and Output 11/30/17 12/01/17 12/01/17 22:59 06:59 14:59 Intake Total 38.885 63.647 20.790 Output Total 450 400 Balance -411.115 63.647 -379.210 Intake: Intake, IV Titration 38.885 63.647 20.790 Amount Insulin Regular 100 unit 38.885 55.904 In Sodium Chloride 0.9% 100 ml @ Titrate IV .Q0M [facility] Rx#:[id number] Insulin Regular 100 unit 7.743 20.790 In Sodium Chloride 0.9% 100 ml @ Titrate IV .Q0M [facility] Rx#:[id number] Output: Urine 450 400 Other: Voiding Method Toilet Toilet Urinal Urinal # Voids 3 2 1 # Bowel Movements 1 Weight 110.722 kg 11/30/17 13:12 12/01/17 09:30 Assessment and Plan Assessment: ASSESSMENT 1. Non-sustained ventricular tachycardia, 9-beat run. Secondary to metabolic abnormalities. 2. Hyperkalemia 3. Bioprostetic aortic valve replacement 4. History of known CAD with subsequent bypass grafting 5. Persistent atrial fibrillation on long-term anticoagulation with Eliquis, controlled ventricular response 6. Positive blood cultures with gram positive bacilli, possible contamination. 7. Hypertension, controlled 8. Dyslipidemia 9. Diabetes mellitus, uncontrolled 10. Hypermagnesemia PLAN Recommend ongoing discontinuation of potassium supplementation. May consider kaexylate if potassium continues to remain elevated. Also can consider discontinuation of mima inhibitor. Ongoing telemetry monitoring and repeat BMP in the am. Medical team to address TSH and levothyroxine dosing. We will continue to follow with Mr. Hatch. Further recommendations will be based upon clinical course. Thank you kindly for this consultation. The above impression and plan of care have been discussed and directed by the signing physician. Anjelica Garcia, nurse practitioner, acting as scribe for signing physician.
--- NOTE | 2017-12-01 12:35 | CONS ---
CONSULTATION DATE OF SERVICE: 11/30/2017 REASON FOR CONSULTATION: 1. Positive blood culture with diphtheroid. 2. Pneumonia. HISTORY OF PRESENT ILLNESS: The patient is a 77-year-old male who apparently presented to [facility] with chief complaints of increasing shortness of breath along with a cough. The patient did have some low-grade fever. No URI symptoms. No nausea, no vomiting, no abdominal pain, no diarrhea. His visitation to that facility was on the November. The patient did have a CT that was suggestive of a left lung disease. CT angiogram was negative for PE; however, it did show inferior air bronchogram indicating of a left lower lobe pneumonia. The patient will be treated with Levaquin. He did have blood cultures obtained, which came positive for diphtheroid. He was started on erythromycin. Subsequently transferred to this facility to be evaluated by Infectious Disease services. Patient denies having any further fever or any chills. The patient denies having any URI symptoms. No chest pain. Breathing has slightly improved. He continues to have some cough for the last 1 week moderate in intensity, bringing up some whitish to yellowish sputum. No hemoptysis. No chest pain. No abdominal pain. No nausea, no vomiting and no diarrhea. REVIEW OF SYSTEMS: CONSTITUTIONAL: Positive for weakness. No fever. EYES: No complaint. ENT: No complaint. RESPIRATORY: As per HPI. CARDIOVASCULAR: No complaint. GENITOURINARY: No complaint. GASTROINTESTINAL: No complaint. MUSCULOSKELETAL: No complaint. INTEGUMENTARY: No complaint. PSYCHOLOGICAL: No complaint. ENDOCRINE: No complaint. NEUROLOGIC: No complaint. PAST MEDICAL HISTORY: Hypertension, hyperlipidemia, osteoarthritis, atrial fibrillation, diabetes mellitus, COPD, hypothyroidism. PAST SURGICAL HISTORY: Significant for appendectomy, back surgery, coronary artery bypass graft x2 and cardiac valve replacement. He did have pacemaker placement, tonsillectomy, PTCA and stent. SOCIAL HISTORY: Remote history of smoking. Quit back in 1979. No drinking or any drug use. FAMILY HISTORY: Mother with history of CVA, TIA. Father had history of cancer. ALLERGIES: No known drug allergies. MEDICATIONS: Medications include patient is currently on DuoNeb, Eliquis, Lipitor, Colace, Lasix, NovoLog, Synthroid, Zestril, Glucophage, Lopressor, Singulair, Theragran, Nitrostat, prednisone. PHYSICAL EXAMINATION: On examination, blood pressure is 129/70 with the pulse of 60, temperature of 97.2. He is 96% on room air. General description is an elderly male lying in bed in no distress with no tachypnea or accessory muscle of respiration use. HEENT examination shows pallor, no scleral icterus. Oral mucous membranes dry. No pharyngeal erythema or thrush NECK: Trachea central, no thyromegaly. LUNGS: Unlabored breathing with decreased breath sounds in the bases, no wheeze. HEART: S1, S2 is regular. No added sound. ABDOMEN: Soft, no tenderness. No guarding or rigidity. No organomegaly EXTREMITIES: No edema of feet. SKIN EXAMINATION: No rash or mass palpable. The patient's Medi[employer] site on the left chest wall looks clean with no swelling or redness. The right hip incision looks clean. NEUROLOGICAL: Patient is awake, alert, oriented x3. Mood and affect normal. LABS: Hemoglobin is 11.1, white count 9.8. BUN of 44, creatinine is 1.0. Electrolytes have been normal. Blood cultures did review from the [facility] shows positive diphtheroid. DIAGNOSTIC IMPRESSION AND PLAN: Patient with a positive blood culture with diphtheroid more likely skin contamination in a patient admitted to the hospital likely with pneumonia and being treated with Levaquin and still have some respiratory symptoms of cough and sputum production , likely underlying partially treated pneumonia of community origin to be the likely etiology And the likely organism to cover for his underlying pneumonia will be strep pneumo and Haemophilus influenza PLAN: 1. Blood cultures have been repeated to make sure no evidence of persistent bacteremia. However, no further workup for the positive diphtheroid more likely representing contamination. 2. We will obtain sputum for gram stains and culture and sensitivity. 3. Rocephin 1 gram daily for underlying left lower lobe community-acquired pneumonia. 4. We will follow up on his clinical condition and culture to further adjust medication if needed. Thank you for this consultation. Will follow this patient along with you. MMODL / IJN: [id number] / DA
[2017-12-01] MEDS: MULTIVITAMINS, THERA 1 EACH TAB PO SCH (13:05)
[2017-12-01 14:01] LABS: Glucose,Whole Blood 322 mg/dL (75-99)
[2017-12-01 16:07] LABS: Glucose,Whole Blood 270 mg/dL (75-99)
[2017-12-01 17:53] LABS: Glucose,Whole Blood 224 mg/dL (75-99)
[2017-12-01 19:56] LABS: Glucose,Whole Blood 248 mg/dL (75-99)
[2017-12-01] MEDS: ATORVASTATIN 80 MG TAB PO SCH (20:11)
[2017-12-01 22:16] LABS: Glucose,Whole Blood 205 mg/dL (75-99)
--- NOTE | 2017-12-01 22:41 | PN ---
PROGRESS NOTE DATE OF SERVICE: . REASON FOR FOLLOWUP: 1. Positive blood culture. 2. Possible pneumonia. INTERVAL HISTORY: The patient is afebrile, has been breathing more comfortably. He did have some cough, minimal sputum. No chest pain. No abdominal pain. No nausea, vomiting and no diarrhea. EXAMINATION: Blood pressure 129/70 with a pulse of 79, temperature of 97.2. He is 93% on room air. General description is an elderly male lying in bed in no distress. Respiratory system: Unlabored breathing. Some decreased breath sounds in the bases. No wheeze. Heart S1, S2. Regular rate and rhythm. Abdomen soft, no tenderness. LABS: Blood culture repeat has been negative so far. BUN of 46, creatinine 1.14. Chest x- ray with left lower lobe infiltrate. DIAGNOSTIC IMPRESSION AND PLAN: 1. Patient with a positive blood culture with diphtheroid species, likely a contamination and not a true pathogen. No need for further workup for the same. Repeat blood culture has been negative so far. 2. Patient possible left lower lobe pneumonia community acquired on Rocephin that will be transitioned to p.o. on discharge. MMODL / IJN: [id number] /
[2017-12-02 00:03] LABS: Glucose,Whole Blood 183 mg/dL (75-99)
--- NOTE | 2017-12-02 00:55 | P.PN ---
Subjective Progress Note Date: 12/01/17 Principal diagnosis: Acute COPD exacerbation Patient is a 77-year-old male with a known history of coronary artery disease with history of stent placement, atrial fibrillation on anticoagulation with eliquis, diabetes type 2, hypertension, upset to sleep apnea and hypothyroidism was sent from neck in the hospital due to positive blood cultures with diphtheria. Patient was initially presented to [facility] on 11/24/2017 with complaints of shortness of breath and was being treated for acute COPD exacerbation and pneumonia. Patient was on prednisone and levofloxacin. Patient was also having hyperglycemia and was being treated with insulin dosing. Today patient was found have blood cultures positive for diphtheria. One out of 2 bottles after 48 hours. Patient was empirically started on antibiotics in the form of erythromycin 500 mg every 6 hourly and was transferred to [facility] for further radiation by infectious disease specialist. Currently patient denied any worsening shortness of breath or chest pain. Patient had chest x-ray done at [facility] in the hospital showed retrocardiac airspace disease and small pleural effusion and left basilar atelectasis. CT chest showed no evidence of pulmonary embolism. Infiltrates with air bronchograms indicated above is just disease involving the left lower lobe with them accompanying small left-sided pleural effusion R reaction. Additional patchy density in the left lateral portion of the upper lobe measuring 8 mm. patient received levofloxacin from 11/24/2017 to 11/30/2017. On 12/01/2017 Patient's breathing status much improved now. Patient is still slightly hyperkalemic. We will stop potassium supplementation upon discharge. Overnight patient had nonsustained V. tach and was seen by cardiology. Likely due to electrolyte abnormalities. Otherwise repeat blood cultures have been negative. Patient was started on ceftriaxone for left lower lobe pneumonia otherwise patient is clinically improving. No fever no chills. No other acute overnight issues. Patient was started on insulin drip due to hyperglycemia secondary to steroids All other review of systems negative except above. Current medications reviewed Objective - Vital Signs Vital signs: Vital Signs Temp 98.1 F 12/01/17 22:05 Pulse 61 12/01/17 22:05 Resp 18 12/01/17 22:05 BP 115/55 12/01/17 22:05 Pulse Ox 93 L 12/01/17 22:05 Intake & Output 12/01/17 12/01/17 12/02/17 06:59 18:59 06:59 Intake Total 870.643 7024.427 36.427 Output Total 450 800 Balance -347.468 448.427 36.427 Weight 110.722 kg Intake: Intake, IV Titration 102.532 168.427 36.427 Amount Insulin Regular 100 unit 94.789 In Sodium Chloride 0.9% 100 ml @ Titrate IV .Q0M [facility] Rx#:[id number] Insulin Regular 100 unit 7.743 118.427 36.427 In Sodium Chloride 0.9% 100 ml @ Titrate IV .Q0M [facility] Rx#:[id number] cefTRIAXone 1,000 mg In 50 Sodium Chloride 0.9% 50 ml @ 100 mls/hr IVPB Q24HR [facility] Rx#:[id number] Oral 1080 Output: Urine 450 800 Other: Voiding Method Toilet Toilet Urinal Urinal # Voids 2 3 1 # Bowel Movements 1 - Exam PHYSICAL EXAMINATION: Patient is lying in the bed comfortably, no acute distress, awake alert and oriented.. HEENT: Normocephalic. Neck is supple. Pupils reactive. Nostrils clear. Oral cavity is moist. Ears reveal no drainage. Neck reveals no JVD, carotid bruits, or thyromegaly. CHEST EXAMINATION: Trachea is central. Symmetrical expansion. Bilateral basilar diminished air entry. No wheezing CARDIAC: Normal S1, S2 with no gallops. No murmurs ABDOMEN: Soft. Bowel sounds normal. No organomegaly. No abdominal bruits. Extremities: reveal no edema. No clubbing or cyanosis Neurologically awake, alert, oriented x3 with well-coordinated movements. No focal deficits noted Skin: No rash or skin lesions. Psychiatric: Cooperative. Nonsuicidal Musculoskeletal: No joint swelling or deformity. Normal range of motion. - Labs CBC & Chem 7: 11/30/17 13:12 12/01/17 09:30 Labs: Abnormal Lab Results - Last 24 Hours (Table) 11/30/17 12/01/17 12/01/17 Range/Units 15:43 01:58 03:53 Potassium (3.5-5.1) mmol/L Chloride (98-107) mmol/L BUN (9-20) mg/dL Glucose (74-99) mg/dL POC Glucose (mg/dL) 135 H 178 H (75-99) mg/dL Hemoglobin A1c 11.6 H (4.0-6.0) % Magnesium (1.6-2.3) mg/dL TSH (0.465-4.680) mIU/L 12/01/17 12/01/17 12/01/17 Range/Units 05:48 07:56 09:30 Potassium 5.4 H (3.5-5.1) mmol/L Chloride 97 L (98-107) mmol/L BUN 46 H (9-20) mg/dL Glucose 330 H (74-99) mg/dL POC Glucose (mg/dL) 205 H 204 H (75-99) mg/dL Hemoglobin A1c (4.0-6.0) % Magnesium 2.6 H (1.6-2.3) mg/dL TSH 0.429 L (0.465-4.680) mIU/L 12/01/17 12/01/17 12/01/17 Range/Units 09:55 11:55 13:59 Potassium (3.5-5.1) mmol/L Chloride (98-107) mmol/L BUN (9-20) mg/dL Glucose (74-99) mg/dL POC Glucose (mg/dL) 403 H 265 H 322 H (75-99) mg/dL Hemoglobin A1c (4.0-6.0) % Magnesium (1.6-2.3) mg/dL TSH (0.465-4.680) mIU/L 12/01/17 12/01/17 12/01/17 Range/Units 15:53 17:51 19:53 Potassium (3.5-5.1) mmol/L Chloride (98-107) mmol/L BUN (9-20) mg/dL Glucose (74-99) mg/dL POC Glucose (mg/dL) 270 H 224 H 248 H (75-99) mg/dL Hemoglobin A1c (4.0-6.0) % Magnesium (1.6-2.3) mg/dL TSH (0.465-4.680) mIU/L 12/01/17 12/02/17 Range/Units 22:15 00:00 Potassium (3.5-5.1) mmol/L Chloride (98-107) mmol/L BUN (9-20) mg/dL Glucose (74-99) mg/dL POC Glucose (mg/dL) 205 H 183 H (75-99) mg/dL Hemoglobin A1c (4.0-6.0) % Magnesium (1.6-2.3) mg/dL TSH (0.465-4.680) mIU/L Microbiology - Last 24 Hours (Table) 11/30/17 15:43 Blood Culture - Preliminary Blood No Growth after 24 hours Assessment and Plan Assessment: Acute COPD/asthma exacerbation Hyperglycemia with uncontrolled diabetes type 2 Left-sided pneumonia. Completed levofloxacin for 7 days. Positive blood cultures with gram-positive bacilli/diphtheria. Possible contaminant. Repeat blood cultures no growth so far. Acute on chronic diastolic CHF with mild exacerbation. Improving now Atrial fibrillation with history of pacemaker placement. On anticoagulation Coronary artery disease status post stent placement and two-vessel bypass History of bioprosthetic Aortic valve replacement Hypertension Hyperlipidemia Osteoarthritis. Objective sleep apnea on CPAP at home Hypothyroidism Hyperkalemia likely due to potassium supplementation. Will hold at this time Prerenal azotemia. Possibly due to diuresis and steroids. Nonsustained V. tach due to electrolyte abnormalities. 2-D echo was done. Seen by cardiology Plan: Patient will be continued on Erithromycin and ID was consulted for further evaluation. Patient will be continued on breathing treatments and prednisone 40 mg daily. Continue with Lasix and hold potassium supplementation due to hyperkalemia. Continue with the oxygen therapy and follow closely. Continue with home medications. Further recommendations based on the clinical course. Prognosis is guarded with multiple medical problems and comorbid conditions. Time with Patient: Greater than 30
[2017-12-02 02:01] LABS: Glucose,Whole Blood 89 mg/dL (75-99)
[2017-12-02 02:54] LABS: Glucose,Whole Blood 82 mg/dL (75-99)
[2017-12-02 04:13] LABS: Glucose,Whole Blood 80 mg/dL (75-99)
[2017-12-02 05:49] LABS: Glucose,Whole Blood 136 mg/dL (75-99)
[2017-12-02] MEDS: LEVOTHYROXINE 100 MCG TAB PO SCH (06:16)
[2017-12-02 07:18] LABS: Anion Gap 9 mmol/L; Blood Urea Nitrogen 51 mg/dL (9-20); Calcium 9.3 mg/dL (8.4-10.2); Carbon Dioxide 34 mmol/L (22-30); Chloride 99 mmol/L (98-107); Glucose 80 mg/dL (74-99); Potassium 4.6 mmol/L (3.5-5.1); Sodium 142 mmol/L (137-145)
[2017-12-02 07:33] LABS: Basophils % (A) 0 %; Eosinophils # (A) 0.1 k/uL (0-0.7); Eosinophils % (A) 1 %; HCT 38.2 % (39.0-53.0); HGB 12.1 gm/dL (13.0-17.5); Lymphocytes # (A) 1.2 k/uL (1.0-4.8); Lymphocytes % (A) 9 %; MCH 28.3 pg (25.0-35.0); MCHC 31.6 g/dL (31.0-37.0); MCV 89.4 fL (80.0-100.0); Mean Platelet Volume 8.6; Monocytes # (A) 0.8 k/uL (0-1.0); Monocytes % (A) 6 %; Neutrophils # (A) 11.6 k/uL (1.3-7.7); Neutrophils % (A) 84 %; Platelet Count 326 k/uL (150-450); RBC 4.27 m/uL (4.30-5.90); RDW 15.5 % (11.5-15.5); WBC 13.8 k/uL (3.8-10.6)
[2017-12-02 08:04] LABS: Glucose,Whole Blood 83 mg/dL (75-99)
[2017-12-02] MEDS: LISINOPRIL 20 MG TAB PO SCH (08:26)
[2017-12-02] MEDS: APIXABAN 5 MG TAB PO SCH ×2 (08:26→19:35)
[2017-12-02] MEDS: FUROSEMIDE 40 MG TAB PO SCH (08:26)
[2017-12-02] MEDS: METOPROLOL TARTRATE 25 MG TAB PO SCH ×2 (08:26→19:35)
[2017-12-02] MEDS: MONTELUKAST 10 MG TAB PO SCH (08:26)
[2017-12-02] MEDS: predniSONE 50 MG TAB PO SCH (08:26)
[2017-12-02] MEDS: amLODIPine 10 MG TAB PO SCH (08:26)
[2017-12-02] MEDS: metFORMIN 500 MG TAB PO SCH ×2 (08:26→19:35)
[2017-12-02] MEDS: INSULIN ASPART 100 UNIT/ML 1 ML 10 ML VIAL SQ SCH ×5 (08:36→20:09)
[2017-12-02] MEDS: IPRATROPIUM-ALBUTEROL 3 ML NEB INHALATION SCH ×4 (09:28→21:08)
[2017-12-02 10:05] LABS: Glucose,Whole Blood 162 mg/dL (75-99)
[2017-12-02 12:10] LABS: Glucose,Whole Blood 118 mg/dL (75-99)
[2017-12-02] MEDS: CEFUROXIME 250 MG TAB PO SCH ×2 (13:10→20:10)
[2017-12-02] MEDS: MULTIVITAMINS, THERA 1 EACH TAB PO SCH (13:10)
[2017-12-02] MEDS: cefTRIAXone IN SWFI 1,000 MG/10 ML SYRINGE IVP SCH (15:00)
--- NOTE | 2017-12-02 15:13 | P.PN ---
Subjective Progress Note Date: 12/02/17 Mr. Hatch is a pleasant 77-year-old male with past medical history significant for coronary artery disease with subsequent 2-vessel bypass grafting, aortic valve replacement, dyslipidemia, hypertension, diabetes mellitus, persistent atrial fibrillation on intermediate manager anticoagulation with eliquis, pacemaker implantation secondary to complete heart block. He follows in the office with Dr. العلي. He has been hospitalized at [facility] and treated for COPD exacerbation and pneumonia with levofloxacin x7 days. Blood cultures obtained and were positive for gram-positive bacilli/diptheria. Antibiotics were subsequently changed to erythromycin and he was transferred here for higher level of care. Infectious disease is consulted. We have been asked to see him in consultation for a 9-beat run of non-sustained ventricular tachycardia this morning. He was asymptomatic at the time of arrhythmia. Denies chest pain, shortness of breath, dizziness, palpitations, nausea/vomiting or diaphoresis. EKG on arrival paced with underlying atrial fibrillation. Chest xray heart size is increased, left basilar opacity suggesting atelectasis vs infiltrate. CTA was negative for PE at [facility]. Most recent echocardiogram done in the office 07/2017 reveals preserved left ventricular systolic function with EF 55%, moderately dilated left atrium, mildly dilated right atrium, biological AV prostesis with normal function. Bypass grafting was done in 2009 with SVG-diagonal 1 and SVG to OM1. Most recent Lexiscan stress test done 07/2017 is negative for reversible cardiac ischemia. Laboratory data reviewed, potassium 5.4 was 5.8 on admission, magnesium 2.6, TSH 0.429, cardiac enzymes negative x1, hgb 11.1, plt 279, creastinine 1.0, BUN 44, blood sugars have been consistently elevated. Current cardiac medications include amlodipine 10 mg daily, potassium chloride 20 MEQ BID, lopressor 25 mg BID, lasix 40 mg daily, enalapril 10 mg BID, atorvastatin 80 mg daily and eliquis 5 mg BID. 12/02/2017 He is seen sleeping in bed in no acute distress. Telemetry tracings have been reviewed and there have been no further instances of ventricular tachycardia. Repeat potassium today is 4.6 with supplementation discontinued. He continues to deny chest pain, shortness of breath, dizziness, palpitations or diaphoresis. Objective - Vital Signs Vital signs: Vital Signs Temp 98 F 12/02/17 14:15 Pulse 71 12/02/17 14:15 Resp 20 12/02/17 14:15 BP 118/62 12/02/17 14:15 Pulse Ox 95 12/02/17 14:15 Intake & Output 12/01/17 12/02/17 12/02/17 18:59 06:59 18:59 Intake Total 1248.427 583.430 1.133 Output Total 800 500 Balance 448.427 83.430 1.133 Weight 110.722 kg Intake: Intake, IV Titration 168.427 43.430 1.133 Amount Insulin Regular 100 unit 118.427 43.430 1.133 In Sodium Chloride 0.9% 100 ml @ Titrate IV .Q0M [facility] Rx#:[id number] cefTRIAXone 1,000 mg In 50 Sodium Chloride 0.9% 50 ml @ 100 mls/hr IVPB Q24HR [facility] Rx#:[id number] Oral 1080 540 Output: Urine 800 500 Other: Voiding Method Toilet Toilet Toilet Urinal Urinal Urinal # Voids 3 1 4 # Bowel Movements 1 1 - Exam Blood pressure 118/62 heart rate 71 afebrile GENERAL: Well-appearing, well-nourished and in no acute distress. NECK: Supple without JVD or thyromegaly. LUNGS: Expiratory wheezes throughout, diminished. No rales or rhonchi. HEART: Irregular rate and rhythm with systolic ejection murmur at the base, no rubs or gallops. S1 and S2 heard. EXTREMITIES: Normal range of motion, no edema. No clubbing or cyanosis. Peripheral pulses intact. - Labs CBC & Chem 7: 12/02/17 06:31 12/02/17 06:31 Labs: Abnormal Lab Results - Last 24 Hours (Table) 12/01/17 12/01/17 12/01/17 Range/Units 15:53 17:51 19:53 WBC (3.8-10.6) k/uL RBC (4.30-5.90) m/uL Hgb (13.0-17.5) gm/dL Hct (39.0-53.0) % Neutrophils # (1.3-7.7) k/uL Carbon Dioxide (22-30) mmol/L BUN (9-20) mg/dL Creatinine (0.66-1.25) mg/dL POC Glucose (mg/dL) 270 H 224 H 248 H (75-99) mg/dL 12/01/17 12/02/17 12/02/17 Range/Units 22:15 00:00 05:46 WBC (3.8-10.6) k/uL RBC (4.30-5.90) m/uL Hgb (13.0-17.5) gm/dL Hct (39.0-53.0) % Neutrophils # (1.3-7.7) k/uL Carbon Dioxide (22-30) mmol/L BUN (9-20) mg/dL Creatinine (0.66-1.25) mg/dL POC Glucose (mg/dL) 205 H 183 H 136 H (75-99) mg/dL 12/02/17 12/02/17 12/02/17 Range/Units 06:31 06:31 10:02 WBC 13.8 H (3.8-10.6) k/uL RBC 4.27 L (4.30-5.90) m/uL Hgb 12.1 L (13.0-17.5) gm/dL Hct 38.2 L (39.0-53.0) % Neutrophils # 11.6 H (1.3-7.7) k/uL Carbon Dioxide 34 H (22-30) mmol/L BUN 51 H (9-20) mg/dL Creatinine 1.30 H (0.66-1.25) mg/dL POC Glucose (mg/dL) 162 H (75-99) mg/dL 12/02/17 Range/Units 12:07 WBC (3.8-10.6) k/uL RBC (4.30-5.90) m/uL Hgb (13.0-17.5) gm/dL Hct (39.0-53.0) % Neutrophils # (1.3-7.7) k/uL Carbon Dioxide (22-30) mmol/L BUN (9-20) mg/dL Creatinine (0.66-1.25) mg/dL POC Glucose (mg/dL) 118 H (75-99) mg/dL Microbiology - Last 24 Hours (Table) 12/01/17 07:00 Gram Stain - Preliminary Sputum 11/30/17 15:43 Blood Culture - Preliminary Blood No Growth after 24 hours Assessment and Plan Assessment: ASSESSMENT 1. Non-sustained ventricular tachycardia, 9-beat run. Secondary to metabolic abnormalities. 2. Hyperkalemia, resolved 3. Bioprostetic aortic valve replacement 4. History of known CAD with subsequent bypass grafting 5. Persistent atrial fibrillation on long-term anticoagulation with Eliquis, controlled ventricular response 6. Positive blood cultures with gram positive bacilli, possible contamination. 7. Hypertension, controlled 8. Dyslipidemia 9. Diabetes mellitus, uncontrolled 10. Hypermagnesemia 11. Acute kidney injury, creatinine today 1.3 up from 1.0 at admission PLAN May consider discontinuation of KATHY inhibitor secondary to acute kidney injury if this persists. Stable from a cardiac perspective. Recommend follow up BMP in 2 weeks. Follow-up with Dr. العلي in 3 weeks. The above impression and plan of care have been discussed and directed by the signing physician. Anjelica Garcia, nurse practitioner, acting as scribe for signing physician.
--- NOTE | 2017-12-02 15:21 | PN ---
PROGRESS NOTE DATE OF SERVICE: 12/02/2017 REASON FOR FOLLOWUP: 1. Positive blood culture with diphtheroid, likely a contamination. 2. Possible pneumonia, community-acquired. INTERVAL HISTORY: The patient is afebrile, has been breathing comfortably on room air. Denies having any chest pain. Cough has decreased in intensity. No nausea. No vomiting, no abdominal pain. The patient has lost his IV and I was able to place another IV. PHYSICAL EXAMINATION: Blood pressure 118/62 with a pulse of 71, temperature of 98. He is 95% on room air. General description is an elderly male lying in bed, in no distress. RESPIRATORY SYSTEM: Unlabored breathing. Decreased breath sounds at the bases, no wheeze. HEART: S1, S2. Regular rate and rhythm. ABDOMEN: Soft, no tenderness. LABS: Hemoglobin is 12.1, white count 13.8 with a BUN of 51, creatinine is 1.30. Blood cultures have been negative. Sputum 12/01 is currently pending. DIAGNOSTIC IMPRESSION AND PLAN: 1. Patient with a positive blood culture with diphtheroid, patient likely representing a contamination. Follow up blood culture has been negative. No need for further workup for the same. 2. Patient with possible left lower lobe pneumonia. Overall improvement on Rocephin, now with no IV access and will assist him with Ceftin 500 mg twice a day, which should continue for about a week to finish a course of therapy. Continue supportive care. MMKRISTIEL / ASHLEYN: [id number] /
[2017-12-02 16:56] LABS: Glucose,Whole Blood 250 mg/dL (75-99)
[2017-12-02] MEDS: ATORVASTATIN 80 MG TAB PO SCH (19:35)
[2017-12-02] MEDS: LISINOPRIL 10 MG TAB PO SCH (19:36)
[2017-12-02 19:53] LABS: Glucose,Whole Blood 373 mg/dL (75-99)
[2017-12-02] MEDS ORDERED: CEFUROXIME 250 MG TAB PO SCH (21:00)
--- NOTE | 2017-12-02 22:22 | P.PN ---
Subjective Progress Note Date: 12/02/17 Principal diagnosis: Acute COPD exacerbation Patient is a 77-year-old male with a known history of coronary artery disease with history of stent placement, atrial fibrillation on anticoagulation with eliquis, diabetes type 2, hypertension, upset to sleep apnea and hypothyroidism was sent from neck in the hospital due to positive blood cultures with diphtheria. Patient was initially presented to [facility] on 11/24/2017 with complaints of shortness of breath and was being treated for acute COPD exacerbation and pneumonia. Patient was on prednisone and levofloxacin. Patient was also having hyperglycemia and was being treated with insulin dosing. Today patient was found have blood cultures positive for diphtheria. One out of 2 bottles after 48 hours. Patient was empirically started on antibiotics in the form of erythromycin 500 mg every 6 hourly and was transferred to [facility] for further radiation by infectious disease specialist. Currently patient denied any worsening shortness of breath or chest pain. Patient had chest x-ray done at [facility] in the hospital showed retrocardiac airspace disease and small pleural effusion and left basilar atelectasis. CT chest showed no evidence of pulmonary embolism. Infiltrates with air bronchograms indicated above is just disease involving the left lower lobe with them accompanying small left-sided pleural effusion R reaction. Additional patchy density in the left lateral portion of the upper lobe measuring 8 mm. patient received levofloxacin from 11/24/2017 to 11/30/2017. On 12/01/2017 Patient's breathing status much improved now. Patient is still slightly hyperkalemic. We will stop potassium supplementation upon discharge. Overnight patient had nonsustained V. tach and was seen by cardiology. Likely due to electrolyte abnormalities. Otherwise repeat blood cultures have been negative. Patient was started on ceftriaxone for left lower lobe pneumonia otherwise patient is clinically improving. No fever no chills. No other acute overnight issues. Patient was started on insulin drip due to hyperglycemia secondary to steroids. 12/02/2017 Patient's breathing status is much improved now currently saturating well on room air. Patient is being continued on antibiotics which can be changed to oral upon discharge. Otherwise no fever no chills. No acute overnight issues. Anticipate discharged in next 24 hours. All other review of systems negative except above. Current medications reviewed Objective - Vital Signs Vital signs: Vital Signs Temp 98 F 12/02/17 14:15 Pulse 68 12/02/17 21:24 Resp 20 12/02/17 16:00 BP 118/62 12/02/17 14:15 Pulse Ox 94 L 12/02/17 16:04 Intake & Output 12/02/17 12/02/17 12/03/17 06:59 18:59 06:59 Intake Total 583.430 1.133 Output Total 500 500 Balance 83.430 -498.867 Intake: Intake, IV Titration 43.430 1.133 Amount Insulin Regular 100 unit 43.430 1.133 In Sodium Chloride 0.9% 100 ml @ Titrate IV .Q0M [facility] Rx#:[id number] Oral 540 Output: Urine 500 500 Other: Voiding Method Toilet Toilet Urinal Urinal # Voids 1 4 # Bowel Movements 1 - Exam PHYSICAL EXAMINATION: Patient is lying in the bed comfortably, no acute distress, awake alert and oriented.. HEENT: Normocephalic. Neck is supple. Pupils reactive. Nostrils clear. Oral cavity is moist. Ears reveal no drainage. Neck reveals no JVD, carotid bruits, or thyromegaly. CHEST EXAMINATION: Trachea is central. Symmetrical expansion. Bilateral basilar diminished air entry. No wheezing CARDIAC: Normal S1, S2 with no gallops. No murmurs ABDOMEN: Soft. Bowel sounds normal. No organomegaly. No abdominal bruits. Extremities: reveal no edema. No clubbing or cyanosis Neurologically awake, alert, oriented x3 with well-coordinated movements. No focal deficits noted Skin: No rash or skin lesions. Psychiatric: Cooperative. Nonsuicidal Musculoskeletal: No joint swelling or deformity. Normal range of motion. - Labs CBC & Chem 7: 12/02/17 06:31 12/02/17 06:31 Labs: Abnormal Lab Results - Last 24 Hours (Table) 12/02/17 12/02/17 12/02/17 Range/Units 00:00 05:46 06:31 WBC 13.8 H (3.8-10.6) k/uL RBC 4.27 L (4.30-5.90) m/uL Hgb 12.1 L (13.0-17.5) gm/dL Hct 38.2 L (39.0-53.0) % Neutrophils # 11.6 H (1.3-7.7) k/uL Carbon Dioxide (22-30) mmol/L BUN (9-20) mg/dL Creatinine (0.66-1.25) mg/dL POC Glucose (mg/dL) 183 H 136 H (75-99) mg/dL Magnesium (1.6-2.3) mg/dL 12/02/17 12/02/17 12/02/17 Range/Units 06:31 06:31 10:02 WBC (3.8-10.6) k/uL RBC (4.30-5.90) m/uL Hgb (13.0-17.5) gm/dL Hct (39.0-53.0) % Neutrophils # (1.3-7.7) k/uL Carbon Dioxide 34 H (22-30) mmol/L BUN 51 H (9-20) mg/dL Creatinine 1.30 H (0.66-1.25) mg/dL POC Glucose (mg/dL) 162 H (75-99) mg/dL Magnesium 2.6 H (1.6-2.3) mg/dL 12/02/17 12/02/17 12/02/17 Range/Units 12:07 16:53 19:51 WBC (3.8-10.6) k/uL RBC (4.30-5.90) m/uL Hgb (13.0-17.5) gm/dL Hct (39.0-53.0) % Neutrophils # (1.3-7.7) k/uL Carbon Dioxide (22-30) mmol/L BUN (9-20) mg/dL Creatinine (0.66-1.25) mg/dL POC Glucose (mg/dL) 118 H 250 H 373 H (75-99) mg/dL Magnesium (1.6-2.3) mg/dL Microbiology - Last 24 Hours (Table) 11/30/17 15:43 Blood Culture - Preliminary Blood No Growth after 48 hours 12/01/17 07:00 Gram Stain - Preliminary Sputum Assessment and Plan Assessment: Acute COPD/asthma exacerbation Hyperglycemia due to steroids with uncontrolled diabetes type 2. Was on insulin drip. Controlled now Left-sided pneumonia. Completed levofloxacin for 7 days. Positive blood cultures with gram-positive bacilli/diphtheria. Possible contaminant. Repeat blood cultures no growth so far. Acute on chronic diastolic CHF with mild exacerbation. Improving now Atrial fibrillation with history of pacemaker placement. On anticoagulation Coronary artery disease status post stent placement and two-vessel bypass History of bioprosthetic Aortic valve replacement Hypertension Hyperlipidemia Osteoarthritis. Objective sleep apnea on CPAP at home Hypothyroidism Hyperkalemia likely due to potassium supplementation. Will hold at this time Prerenal azotemia. Possibly due to diuresis and steroids. Nonsustained V. tach due to electrolyte abnormalities. 2-D echo was done. Seen by cardiology Plan: Patient will be continued on breathing treatments and prednisone 40 mg daily. Continue with Lasix and hold potassium supplementation due to hyperkalemia. Continue with antibiotics. Continue with home medications. Further recommendations based on the clinical course. Prognosis is guarded with multiple medical problems and comorbid conditions. Time with Patient: Greater than 30
[2017-12-02 23:19] VITALS: RESP 20
[2017-12-03] MEDS: LEVOTHYROXINE 100 MCG TAB PO SCH (06:13)
[2017-12-03 07:08] LABS: Glucose,Whole Blood 270 mg/dL (75-99)
[2017-12-03] MEDS: INSULIN ASPART 100 UNIT/ML 1 ML 10 ML VIAL SQ SCH ×3 (07:45→17:26)
[2017-12-03] MEDS: CEFUROXIME 250 MG TAB PO SCH (07:46)
[2017-12-03] MEDS: FUROSEMIDE 40 MG TAB PO SCH (07:47)
[2017-12-03] MEDS: metFORMIN 500 MG TAB PO SCH (07:47)
[2017-12-03] MEDS: METOPROLOL TARTRATE 25 MG TAB PO SCH (07:47)
[2017-12-03] MEDS: APIXABAN 5 MG TAB PO SCH (07:48)
[2017-12-03] MEDS: amLODIPine 10 MG TAB PO SCH (07:48)
[2017-12-03] MEDS: MONTELUKAST 10 MG TAB PO SCH (07:49)
[2017-12-03] MEDS: LISINOPRIL 10 MG TAB PO SCH (07:49)
[2017-12-03 07:53] VITALS: BP 120/68; TEMP 97.8
[2017-12-03] MEDS ORDERED: predniSONE 20 MG TAB PO SCH (09:00)
[2017-12-03] MEDS: IPRATROPIUM-ALBUTEROL 3 ML NEB INHALATION SCH ×3 (09:05→16:19)
[2017-12-03 11:26] LABS: Glucose,Whole Blood 304 mg/dL (75-99)
[2017-12-03] MEDS: MULTIVITAMINS, THERA 1 EACH TAB PO SCH (12:42)
--- NOTE | 2017-12-03 14:46 | PN ---
PROGRESS NOTE DATE OF SERVICE: 12/03/2017 REASON FOR FOLLOWUP VISIT: 1. Positive blood culture. 2. Possible pneumonia. INTERVAL HISTORY: The patient is afebrile. He has been breathing comfortably. Denies having any chest pain or shortness of breath. Very minimal cough. No abdominal pain and no diarrhea. PHYSICAL EXAMINATION: Blood pressure 120/68 with a pulse of 60, temperature is 97.8. He is 92% on room air. General description is an elderly male up in the chair, in no distress. RESPIRATORY SYSTEM: Unlabored breathing. Some decreased breath sounds in the bases, no wheeze. HEART: S1, S2. Regular rate and rhythm. ABDOMEN: Soft, no tenderness LABS: Sputum is usual respiratory randi. Blood culture has been negative. DIAGNOSTIC IMPRESSION AND PLAN: 1. Patient with a positive blood culture in outpatient setting with diphtheroid species, likely a contamination. Blood culture has been negative. No need for any further workup for the same. 2. Patient with left lower lobe pneumonia, currently quite overall improvement on the antibiotic with p.o. Ceftin. Continue for about 5 to 7 days to finish a course of therapy. Continue supportive care. MMODL / IJN: [id number] /
[2017-12-03 16:21] VITALS: PULSE 66
[2017-12-03 17:22] LABS: Glucose,Whole Blood 389 mg/dL (75-99)
[2017-12-03] MEDS ORDERED: INSULIN DETEMIR 100 UNIT/ML 10 ML VIAL SQ SCH (21:00)
--- NOTE | 2017-12-03 23:18 | P.DS ---
Providers Date of admission: 11/30/17 10:47 Expected date of discharge: 12/03/17 Attending physician: Poornima Pelayo Consults: 11/30/17 12:52 Consult Physician Routine Consulting Provider: Asher Barnhart Consult Reason/Comments: positive blood cultures Do you want consulting provider notified?: Yes 12/01/17 07:19 Consult Physician Urgent Consulting Provider: Cody Dockery Consult Reason/Comments: V-tach run of 14, Asymptomatic Do you want consulting provider notified?: Yes Primary care physician: Elian Torres [facility] Course: Discharge diagnosis Acute COPD/asthma exacerbation Hyperglycemia due to steroids with uncontrolled diabetes type 2. Was on insulin drip. Controlled now Left-sided pneumonia. Patient was on ceftriaxone and continue with Ceftin upon discharge Positive blood cultures with gram-positive bacilli/diphtheria. Possible contaminant. Repeat blood cultures no growth so far. Acute on chronic diastolic CHF with mild exacerbation. Improving now Atrial fibrillation with history of pacemaker placement. On anticoagulation Coronary artery disease status post stent placement and two-vessel bypass History of bioprosthetic Aortic valve replacement Hypertension Hyperlipidemia Osteoarthritis. Objective sleep apnea on CPAP at home Hypothyroidism Hyperkalemia likely due to potassium supplementation. Will hold at this time Prerenal azotemia. Possibly due to diuresis and steroids. Nonsustained V. tach due to electrolyte abnormalities. 2-D echo was done. Seen by cardiology Hospital course Patient is a 77-year-old male with a known history of coronary artery disease with history of stent placement, atrial fibrillation on anticoagulation with eliquis, diabetes type 2, hypertension, upset to sleep apnea and hypothyroidism was sent from neck in the hospital due to positive blood cultures with diphtheria. Patient was initially presented to [facility] on 11/24/2017 with complaints of shortness of breath and was being treated for acute COPD exacerbation and pneumonia. Patient was on prednisone and levofloxacin. Patient was also having hyperglycemia and was being treated with insulin dosing. Today patient was found have blood cultures positive for diphtheria. One out of 2 bottles after 48 hours. Patient was empirically started on antibiotics in the form of erythromycin 500 mg every 6 hourly and was transferred to [facility] for further radiation by infectious disease specialist. Currently patient denied any worsening shortness of breath or chest pain. Patient had chest x-ray done at medical in the hospital showed retrocardiac airspace disease and small pleural effusion and left basilar atelectasis. CT chest showed no evidence of pulmonary embolism. Infiltrates with air bronchograms indicated above is just disease involving the left lower lobe with them accompanying small left-sided pleural effusion R reaction. Additional patchy density in the left lateral portion of the upper lobe measuring 8 mm. patient received levofloxacin from 11/24/2017 to 11/30/2017. On 12/01/2017 Patient's breathing status much improved now. Patient is still slightly hyperkalemic. We will stop potassium supplementation upon discharge. Overnight patient had nonsustained V. tach and was seen by cardiology. Likely due to electrolyte abnormalities. Otherwise repeat blood cultures have been negative. Patient was started on ceftriaxone for left lower lobe pneumonia otherwise patient is clinically improving. No fever no chills. No other acute overnight issues. Patient was started on insulin drip due to hyperglycemia secondary to steroids. 12/02/2017 Patient's breathing status is much improved now currently saturating well on room air. Patient is being continued on antibiotics which can be changed to oral upon discharge. Otherwise no fever no chills. No acute overnight issues. Anticipate discharged in next 24 hours. All other review of systems negative except above. 12/03/2017 Patient's breathing status is much improved now. Able to be discharged home today. Patient was continued on breathing treatments and IV methylprednisolone initially and changed to prednisone .. Continued with Lasix and hold potassium supplementation due to hyperkalemia. Continue with antibiotics. Continue with home medications. He did improve clinically. Patient was seen by cardiology and pulmonary were in the hospital. Patient was advised to follow with primary care physician in 1-3 days. Discharge PHYSICAL EXAMINATION: Patient is lying in the bed comfortably, no acute distress, awake alert and oriented.. HEENT: Normocephalic. Neck is supple. Pupils reactive. Nostrils clear. Oral cavity is moist. Ears reveal no drainage. Neck reveals no JVD, carotid bruits, or thyromegaly. CHEST EXAMINATION: Trachea is central. Symmetrical expansion. Mild expiratory wheeze. No rhonchi.. CARDIAC: Normal S1, S2 with no gallops. No murmurs ABDOMEN: Soft. Bowel sounds normal. No organomegaly. No abdominal bruits. Extremities: reveal no edema. No clubbing or cyanosis Neurologically awake, alert, oriented x3 with well-coordinated movements. No focal deficits noted Skin: No rash or skin lesions. Psychiatric: Coperative. Nonsuicidal Musculoskeletal: No joint swelling or deformity. Normal range of motion. Total time taken greater than 35 minutes including 18 minutes for counseling and coordination of care. Patient Condition at Discharge: Fair Plan - Discharge Summary Discharge Rx Participant: No New Discharge Prescriptions: New Cefuroxime [Ceftin] 500 mg PO BID 5 Days #10 tab predniSONE See Taper PO DAILY #18 tab Continue Levothyroxine Sodium [Synthroid] 100 mcg PO DAILY Atorvastatin [Lipitor] 80 mg PO HS Docusate Sodium [Dok] 100 mg PO DAILY PRN PRN Reason: Constipation metFORMIN HCL 1,000 mg PO BID Metoprolol Tartrate [Lopressor] 25 mg PO BID Multivitamin [Men's Multi-Vitamin] 1 tab PO DAILY@1200 Nitroglycerin Sl Tabs [Nitrostat] 0.4 mg SUBLINGUAL Q5M PRN PRN Reason: Chest Pain Apixaban [Eliquis] 5 mg PO BID #30 tab Furosemide [Lasix] 40 mg PO DAILY #0 amLODIPine [Norvasc] 10 mg PO DAILY Montelukast [Singulair] 10 mg PO DAILY Enalapril [Vasotec] 10 mg PO BID Albuterol Nebulized [Ventolin Nebulized] 2.5 mg INHALATION RT-Q6H PRN PRN Reason: Shortness Of Breath Relion 70/30 Ins 42 units SQ DAILY Discontinued Potassium Chloride [Klor-Con 20] 20 meq PO BID Discharge Medication List Levothyroxine Sodium [Synthroid] 100 mcg PO DAILY 04/11/15 [History] Atorvastatin [Lipitor] 80 mg PO HS 01/14/17 [History] Docusate Sodium [Dok] 100 mg PO DAILY PRN 01/14/17 [History] Metoprolol Tartrate [Lopressor] 25 mg PO BID 01/14/17 [History] Multivitamin [Men's Multi-Vitamin] 1 tab PO DAILY@1200 01/14/17 [History] Nitroglycerin Sl Tabs [Nitrostat] 0.4 mg SUBLINGUAL Q5M PRN 01/14/17 [History] metFORMIN HCL 1,000 mg PO BID 01/14/17 [History] Apixaban [Eliquis] 5 mg PO BID #30 tab 01/16/17 [Rx] Furosemide [Lasix] 40 mg PO DAILY #0 01/16/17 [Rx] Albuterol Nebulized [Ventolin Nebulized] 2.5 mg INHALATION RT-Q6H PRN 11/30/17 [ History] Enalapril [Vasotec] 10 mg PO BID 11/30/17 [History] Montelukast [Singulair] 10 mg PO DAILY 11/30/17 [History] Relion 70/30 Ins 42 units SQ DAILY 11/30/17 [History] amLODIPine [Norvasc] 10 mg PO DAILY 11/30/17 [History] Cefuroxime [Ceftin] 500 mg PO BID 5 Days #10 tab 12/03/17 [Rx] predniSONE See Taper PO DAILY #18 tab 12/03/17 [Rx] Follow up Appointment(s)/Referral(s): Leo العلي MD [STAFF PHYSICIAN] - 2 Weeks (cardiology office will call patient to schedule appt.) Patient Instructions/Handouts: Cefuroxime (By mouth), Prednisone (By mouth), COPD (Chronic Obstructive Pulmonary Disease) (DC) Activity/Diet/Wound Care/Special Instructions: Diet consistent carb Activity as tolerated Discharge Disposition: HOME SELF-CARE
[2017-12-04] MEDS ORDERED: predniSONE 10 MG TAB PO SCH (09:00)
== END 2017-12-03 18:09 | disposition home or self-care (01) | DRG 193 ==
LOC: 5MS5E 10:47 → 5ONC 12-01 23:44
PROVIDERS: ADMIT Internal Medicine; ATTEND Internal Medicine
DX: J18.9 Pneumonia, unspecified organism (principal); I50.33 Acute on chronic diastolic (congestive) heart failure; I47.2 Ventricular tachycardia; E11.65 Type 2 diabetes mellitus with hyperglycemia; E87.5 Hyperkalemia; I48.1 Persistent atrial fibrillation; E83.41 Hypermagnesemia; J44.0 Chronic obstructive pulmonary disease with (acute) lower respiratory infection; J44.1 Chronic obstructive pulmonary disease with (acute) exacerbation; I11.0 Hypertensive heart disease with heart failure; I25.10 Atherosclerotic heart disease of native coronary artery without angina pectoris; E78.5 Hyperlipidemia, unspecified; E03.9 Hypothyroidism, unspecified; G47.33 Obstructive sleep apnea (adult) (pediatric); M19.90 Unspecified osteoarthritis, unspecified site; T38.0X5A Adverse effect of glucocorticoids and synthetic analogues, initial encounter; Z79.4 Long term (current) use of insulin; Z82.3 Family history of stroke; Z80.9 Family history of malignant neoplasm, unspecified; Z87.891 Personal history of nicotine dependence; Z95.0 Presence of cardiac pacemaker; Z79.01 Long term (current) use of anticoagulants; Z79.899 Other long term (current) drug therapy; Z95.1 Presence of aortocoronary bypass graft; Z95.2 Presence of prosthetic heart valve; Z90.89 Acquired absence of other organs; Z87.01 Personal history of pneumonia (recurrent); Z96.641 Presence of right artificial hip joint
CPT/HCPCS: 71046; 80048; 80053; 83036; 83735; 84100; 84439; 84443; 84484; 85025; 87040; 87070; 87205; 93005; 93306; 94640